=== PATIENT | female | born 1970 | race Caucasian/White ===

== ENCOUNTER 2019-05-11 14:24 | Outpatient (CLI) | payer OTHER, SELFPAY ==
--- NOTE | 2019-05-11 14:44 | ECHO_ITS ---
Patient Info Name: Kayla Leggett Age: 48 years : 1970 Gender: Female Ht: 61 in Wt: 160 lbs BSA: 1.79 m2 HR: 65 bpm BP: 128 / 84 mmHg Technical Quality: Good Exam Date: 05/11/2019 2:53 PM Exam Location: [facility] Patient Status: Outpatient Admit Date: 05/11/2019 Staff Ordering Physician: Leo Morales DO Crushing Machine Operator: Atif Rod, MAURICIO, RT Attending Provider: Leo Morales DO Referring Physician: Andrew TRAN; Exam Type: CA echo doppler color flow Study Info Indications R01.1 - Cardiac murmur, unspecified Complete two-dimensional, color flow and Doppler transthoracic echocardiogram is performed. Summary 1. Left ventricular chamber dimension is normal. 2. Left ventricular systolic function is normal, estimated at 60-65%. 3. The left ventricular diastolic function is grade III diastolic dysfunction. 4. E/e' 7 is not elevated. 5. Left atrial chamber dimension is mildly enlarged. 6. There is trace mitral valve regurgitation. 7. There is mild to moderate tricuspid valve regurgitation. 8. No pulmonary hypertension, estimated pulmonary arterial systolic pressure is 26 mmHg. 9. There is trace pulmonic regurgitation. Left Ventricle E/e' 7 is not elevated. Left ventricular chamber dimension is normal. Left ventricular systolic function is normal, estimated at 60-65%. The left ventricular diastolic function is grade III diastolic dysfunction. Right Ventricle Right ventricular chamber dimension is normal. Right ventricular systolic function is normal. Left Atria Left atrial chamber dimension is mildly enlarged. Right Atria Right atrial chamber dimension is normal. Aortic Valve The aortic valve is trileaflet. There is no aortic valve stenosis. There is no aortic valve regurgitation. Pulmonic Valve There is trace pulmonic regurgitation. Mitral Valve There is no mitral valve stenosis. There is trace mitral valve regurgitation. Tricuspid Valve There is mild to moderate tricuspid valve regurgitation. No pulmonary hypertension, estimated pulmonary arterial systolic pressure is 26 mmHg. Pericardium/Pleural There is no pericardial effusion. Inferior Vena Cava Normal inferior vena cava with >50% collapse upon inspiration consistent with normal right atrial pressure, 5 mmHg. Aorta The aortic root size at the sinus of Valsalva is normal. Left Ventricular Outflow Tract Name Value Normal LVOT 2D LVOT Diameter 1.9 cm LVOT Doppler LVOT Peak Gradient 8 mmHg LVOT Mean Gradient 5 mmHg LVOT VTI 32 cm LVOT VTI/AV VTI Ratio 0.9 LVOT Stroke Volume 89 ml LVOT CO 5.8 l/min LVOT CI 3.2 l/min/m2 Pulmonic Valve Name Value Normal PV Doppler
== END 2019-05-11 14:25 | disposition home or self-care (01) ==
PROVIDERS: PCP Emergency Medicine; Visit Provider Internal Medicine Cardiovascular Disease
DX: R01.1 Cardiac murmur, unspecified (principal); I51.7 Cardiomegaly; I07.1 Rheumatic tricuspid insufficiency
CPT/HCPCS: 93306

== ENCOUNTER 2019-05-18 10:38 | Outpatient (CLI) | payer OTHER, SELFPAY ==
--- NOTE | ~2019-05-18 | US_ITS ---
EXAMINATION: US thyroid DATE: 05/18/2019 12:48 INDICATION: Nontoxic goiter. TECHNIQUE: Multiple ultrasound images of the thyroid were obtained. COMPARISON: None. FINDINGS: The right thyroid lobe measures 4.8 x 1.6 x 1.6 cm. The left thyroid lobe measures 4.3 x 1.3 x 1.3 c m. In the right thyroid lobe, there is a 13 mm solid, hypoechoic, djviz-xbmi-cutn nodule with ill-de fined margin without echogenic foci (TI-RADS TR4). IMPRESSION: 1. Right thyroid nodule. Thyroid ultrasound is recommended in one year. Reviewed, dictated and finalized at location A. 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
== END 2019-05-18 10:39 | disposition home or self-care (01) ==
PROVIDERS: PCP Emergency Medicine; Visit Provider Internal Medicine Endocrinology, Diabetes & Metabolism
DX: E04.9 Nontoxic goiter, unspecified (principal)
CPT/HCPCS: 76536

== ENCOUNTER 2019-06-14 15:40 | Outpatient (CLI) | payer OTHER, SELFPAY ==
--- NOTE | ~2019-06-14 | MR_ITS ---
EXAMINATION: MR brain/brain stem wo/w con DATE: 06/14/2019 17:10 INDICATION: Seizure. TECHNIQUE: Magnetic resonance imaging (MRI) of the brain and brainstem was performed without and with 15 mL MultiHance intravenous contrast. Sequences included sagittal and axial T1-weighted FSE, axial diffusion-weighted FS EPI, axial T2*-weighted GRE, axial T2-weighted FLAIR Propeller, axial T2-weight ed Propeller, coronal T2-weighted FLAIR, and coronal T1-weighted 3D FSPGR. Postcontrast axial and cor onal T1-weighted FSE was obtained. Apparent diffusion coefficient (ADC) maps were created. COMPARISON: Brain MRI 06/01/2018 FINDINGS: There are scattered areas of nonspecific increased T2-weighted signal intensity in the cere bral white matter, which is within normal limits for the patient's age. There is a 12 x 11 x 9 mm mas s of increased T2-weighted signal intensity involving the left uncus. No contrast enhancement. There is no acute infarct or intracranial hemorrhage. The ventricles are normal in size. There is mucosal t hickening in the paranasal sinuses including complete opacification of right maxillary sinus and near complete opacification of the right anterior ethmoid air cells. There are mucous retention cyst in l eft maxillary sinus. IMPRESSION: 1. 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 Reviewed, dictated and finalized at location A. IMPRESSION: 1. Stable 12 mm nonenhancing mass involving the left uncus suspicious for low-g rade glioma or proteinaceous perihippocampal fissure cyst.
[2019-06-14 16:32] LABS: Estimated Glomerular Filt Rate > 60
== END 2019-06-14 15:41 | disposition home or self-care (01) ==
LOC: ANHIMG 15:43
PROVIDERS: PCP Emergency Medicine; Visit Provider Psychiatry & Neurology Neurology
DX: R56.9 Unspecified convulsions (principal); R93.0 Abnormal findings on diagnostic imaging of skull and head, not elsewhere classified
CPT/HCPCS: 36415; 70553; A9577

== ENCOUNTER 2019-10-24 08:29 | Outpatient (CLI) | payer OTHER, SELFPAY ==
--- NOTE | ~2019-10-24 | US_ITS ---
EXAMINATION: US abdomen complete DATE: 10/24/2019 09:56 INDICATION: Abnormal weight loss TECHNIQUE: Multiple grayscale and Doppler ultrasound images of the abdomen were obtained. COMPARISON: None available FINDINGS: The head and and body of the pancreas are normal. The pancreatic tail is obscured by bowel gas. The liver is normal with normal echogenicity and echotexture. No surface nodularity. Normal hepa topetal flow in the main portal vein. The gallbladder is surgically absent. The normal common bile du ct measures 6 mm. The visualized portions of the aorta and inferior vena cava are normal. The right kidney measures 10 x 4.2 x 4.7 cm. The left kidney measures 11 x 5.5 x 4.2 cm. The kidneys demonstrate normal parenchymal echogenicity. There is no hydronephrosis. The spleen is normal in appe arance and measures 11.2 cm. IMPRESSION: 1. Unremarkable postcholecystectomy ultrasound. Reviewed, dictated and finalized at location A.
== END 2019-10-24 08:30 | disposition home or self-care (01) ==
LOC: ANHIMG 08:39
PROVIDERS: PCP Emergency Medicine; Visit Provider Internal Medicine Endocrinology, Diabetes & Metabolism
DX: E04.9 Nontoxic goiter, unspecified (principal)
CPT/HCPCS: 76700

== ENCOUNTER 2019-10-24 10:54 | Outpatient (CLI) | payer OTHER, SELFPAY ==
--- NOTE | ~2019-10-24 | US_ITS ---
EXAMINATION: US thyroid DATE: 10/24/2019 09:57 INDICATION: Nontoxic goiter TECHNIQUE: Multiple ultrasound images of the thyroid were obtained. COMPARISON: 05/18/2019 FINDINGS: The right thyroid lobe measures 4.2 x 1.6 x 1.3 cm. The left thyroid lobe measures 4.2 x 1.4 x 1.0 c m. Wider than tall solid hypoechoic nodule with ill-defined margins measuring 1.2 x 0.7 x 0.9 cm at the deep mid right thyroid lobe (TI-RADS 4, moderately suspicious , FNA if >=1.5 cm, annual followup is >1 cm). There are couple additional wider than tall solid hypoechoic nodules with well-defined mar gins at the upper and lower poles of the left thyroid lobe, also TI RADS 4) measuring 6 mm and 4 mm r espectively in maximal diameters. There is normal echotexture, echogenicity and vascular flow through out the major of the thyroid gland. IMPRESSION: 1. 3 small TI RADS 4 thyroid nodules, the largest on the right measuring 1.2 cm which is not signific antly changed and for which continued annual follow-up ultrasound is recommended. Reviewed, dictated and finalized at location A. IMPRESSION: 1. 3 small TI RADS 4 thyroid nodules, the largest on the right measuring 1.2 cm which is not significantly changed and for which continued annual follow-up ul trasound is recommended.
== END 2019-10-24 10:55 ==
LOC: ANHIMG 03-13 10:55
PROVIDERS: PCP Emergency Medicine; Visit Provider Emergency Medicine
DX: E04.2 Nontoxic multinodular goiter (principal); R63.4 Abnormal weight loss; R10.9 Unspecified abdominal pain
CPT/HCPCS: 76536

== ENCOUNTER 2020-01-17 09:47 | Outpatient (CLI) | payer OTHER, SELFPAY ==
--- NOTE | ~2020-01-17 | CT_ITS ---
EXAMINATION: CT abdomen pelvis w con DATE: 01/17/2020 10:11 INDICATION: Abdominal pain TECHNIQUE: Computed tomography (CT) of the abdomen and pelvis was performed with 100 mL Omnipaque-350 intravenous contrast. Automated exposure control and iterative reconstruction technique were employe d. The dose-length product was 1241.55 mGy-cm. COMPARISON: None FINDINGS: Lung bases are clear. Mild cardiomegaly with right atrial enlargement. Postoperative change of prior median sternotomy and coronary artery bypass grafting. No pericardial or pleural effusion. Normal debbie iber common bile duct and mild central intrahepatic biliary ductal dilation which is within normal li mits post cholecystectomy with surgical clips at the gallbladder fossa. 2.3 cm splenule along the cau aleshia margin of the normal spleen. Pancreas, bilateral adrenal glands and kidneys are normal. Bowels in cluding the appendix are normal. Bladder, uterus and bilateral adnexa are unremarkable. Small amount of likely physiologic free fluid in the pelvis. No pathologically enlarged abdominal or pelvic lympha denopathy. Very small fat-containing umbilical hernia and immediately more cephalad small fat-contain ing paraumbilical hernia. Moderate thoracic and mild lumbar spondylosis. Bone island at the left femo ral neck. IMPRESSION: 1. Small amount of likely physiologic free fluid in the pelvis. No other acute intra-abdominal/pelvic process. 2. Small fat-containing umbilical and paraumbilical hernias. Reviewed, dictated and finalized at location B.
== END 2020-01-17 09:48 | disposition home or self-care (01) ==
LOC: ANHIMG 09:49
PROVIDERS: PCP Emergency Medicine; Visit Provider Emergency Medicine
DX: R10.9 Unspecified abdominal pain (principal); K42.9 Umbilical hernia without obstruction or gangrene
CPT/HCPCS: 74177; Q9967

== ENCOUNTER 2020-04-24 10:20 | Outpatient (CLI) | payer OTHER, SELFPAY ==
--- NOTE | ~2020-04-24 | MM_ITS ---
EXAMINATION: MM screening julianna BI w franklin HISTORY: Screening mammogram TECHNIQUE: Craniocaudal and mediolateral oblique 3-D tomosynthesis images were obtained and synthetic 2-D images were generated. CAD analysis was submitted and interpreted. COMPARISON: 04/07/2019 BREAST PARENCHYMAL COMPOSITION: There are scattered areas of fibroglandular density. FINDINGS: Scattered benign-appearing calcifications are present. There is no evidence of suspicious m ass, calcification, or architectural distortion to suggest malignancy in either breast. There has bee n no suspicious interval change. IMPRESSION: 1. No mammographic evidence of malignancy. 2. Recommend routine screening mammography in one year. BI-RADS Category 2: Benign finding(s). Reviewed, dictated and finalized at location A. 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
== END 2020-04-24 10:21 | disposition home or self-care (01) ==
LOC: ANHIMG 10:28
PROVIDERS: PCP Emergency Medicine; Referring Provider Internal Medicine; Visit Provider Emergency Medicine
DX: Z12.31 Encounter for screening mammogram for malignant neoplasm of breast (principal)
CPT/HCPCS: 77063; 77067

== ENCOUNTER 2020-05-14 07:33 | Outpatient (CLI) | payer OTHER, SELFPAY ==
--- NOTE | ~2020-05-14 | XR_ITS ---
EXAMINATION: XR_ENEMABAC_CR DATE: 05/14/2020 09:15 INDICATION: Dysphagia, vomiting and weight loss. Incomplete colonoscopy. TECHNIQUE: A graphics programmer radiograph was obtained. A catheter was inserted into the patient's rectum. Contra st was infused by gravity. Gas was infused by hand pump. A total of 55 fluoroscopic spot images and 1 5 conventional radiographs were obtained. Fluoroscopy exposure time was 2.4 minutes. COMPARISON: CT abdomen and pelvis dated 01/17/2020 FINDINGS: Normal mucosal pattern throughout the colon with no diverticula, mucosal irregularities, strictures o r abnormal masses. Small amount of contrast refluxes into the appendix. Cholecystectomy clips in righ t upper quadrant. Median sternotomy wires and mediastinal surgical clips are seen, likely from prior coronary artery bypass grafting. IMPRESSION: 1. Unremarkable double contrast enema with no strictures, masses or other mucosal irregularities. Reviewed, dictated and finalized at location A. TY CORONER IMPRESSION: 1. Unremarkable double contrast enema with no strictures, masses or other mucos al irregularities.
== END 2020-05-14 07:34 | disposition home or self-care (01) ==
PROVIDERS: PCP Emergency Medicine; Visit Provider Internal Medicine Gastroenterology
DX: R13.10 Dysphagia, unspecified (principal); R11.0 Nausea; R63.4 Abnormal weight loss
CPT/HCPCS: 74280

== ENCOUNTER 2020-05-31 07:52 | Outpatient (CLI) | payer OTHER, SELFPAY ==
--- NOTE | 2020-05-31 07:58 | ECHO_ITS ---
Patient Info Name: Kayla Leggett Age: 49 years : 1970 Gender: Female Ht: 61 in Wt: 230 lbs BSA: 2.18 m2 HR: 59 bpm BP: 131 / 84 mmHg Technical Quality: Good Exam Date: 05/31/2020 8:07 AM Exam Location: [facility] Patient Status: Outpatient Admit Date: 05/31/2020 Staff Ordering Physician: Leo Morales DO Commercial Accountant: Atif Rod RDCS, RT Attending Provider: Leo Morales DO Referring Physician: Andrew TRAN; Exam Type: CA echo doppler color flow Study Info Indications R06.09 - Other forms of dyspnea Complete two-dimensional, color flow and Doppler transthoracic echocardiogram is performed. Strain analysis performed. Summary 1. Complete two-dimensional, color flow and Doppler transthoracic echocardiogram is performed. 2. Left ventricular chamber dimension is mildly enlarged. 3. Left ventricular systolic function is normal, estimated at 60-65%. 4. The left ventricular diastolic function is normal. 5. E/e' 6 is not elevated. 6. Global longitudinal strain is normal at -20.7%. 7. Left atrial chamber dimension is mildly enlarged. 8. Right atrial chamber dimension is mildly enlarged. 9. There is trace mitral valve regurgitation. 10. There is mild to moderate tricuspid valve regurgitation. 11. No pulmonary hypertension, estimated pulmonary arterial systolic pressure is 35 mmHg. 12. There is trace pulmonic regurgitation. 13. Normal inferior vena cava with >50% collapse upon inspiration consistent with significantly elevated right atrial pressure, 15 mmHg. Left Ventricle E/e' 6 is not elevated. Global longitudinal strain is normal at -20.7%. Left ventricular chamber dimension is mildly enlarged. Left ventricular systolic function is normal, estimated at 60-65%. The left ventricular diastolic function is normal. Right Ventricle Right ventricular chamber dimension is normal. Right ventricular systolic function is normal. Left Atria Left atrial chamber dimension is mildly enlarged. Right Atria Right atrial chamber dimension is mildly enlarged. Aortic Valve The aortic valve is trileaflet. There is no aortic valve stenosis. There is no aortic valve regurgitation. Pulmonic Valve There is trace pulmonic regurgitation. Mitral Valve There is no mitral valve stenosis. There is trace mitral valve regurgitation. Tricuspid Valve There is mild to moderate tricuspid valve regurgitation. No pulmonary hypertension, estimated pulmonary arterial systolic pressure is 35 mmHg. Pericardium/Pleural There is no pericardial effusion. Inferior Vena Cava Normal inferior vena cava with >50% collapse upon inspiration consistent with significantly elevated right atrial pressure, 15 mmHg. Aorta The aortic root size at the sinus of Valsalva is normal. Left Ventricular Outflow Tract Name Value Normal LVOT 2D LVOT Diameter 1.9 cm Mitral Valve Name Value Normal MV Doppler MV Decel [place] 247 cm/s2
== END 2020-05-31 07:53 | disposition home or self-care (01) ==
PROVIDERS: PCP Emergency Medicine; Visit Provider Internal Medicine Cardiovascular Disease
DX: R06.09 Other forms of dyspnea (principal); I34.0 Nonrheumatic mitral (valve) insufficiency
CPT/HCPCS: 93306

== ENCOUNTER 2020-10-16 10:47 | Outpatient (CLI) | payer OTHER, SELFPAY ==
--- NOTE | ~2020-10-16 | US_ITS ---
EXAMINATION: US thyroid EXAM DATE: 10/16/2020 11:20 INDICATION: Single nontoxic thyroid nodule follow-up. TECHNIQUE: Multiple grayscale and Doppler images of the thyroid were obtained (by a technologist who performed the scan) and subsequently reviewed. Individual nodules and recommendations may be reporte d in accordance with TI-RADS system as designated by the 2017 ACR White Paper TI-RADS committee. The re is no prior study for comparison. FINDINGS: The right thyroid lobe measures 4.0 x 1.5 x 1.5 cm, the left measuring 4.1 x 1.3 x 1.1 cm. Mildly het erogeneous thyroid echogenicity and some increase in vascularity. Exit field In the deep mid aspect of the right thyroid lobe there is a nodule measuring 1.1 x 0.8 x 0.7 cm, nirali d (2 points), hypoechoic (2 points), wider than tall, smooth well defined margin, without echogenic f oci, category TR4 for this nodule. Measurements for this nodule obtained in April 2019 were 1.3 x 0.8 x 0.7, stable. There are a couple of left thyroid lobe nodules up to 4 mm stable. IMPRESSION: Stable right thyroid lobe nodule; one-year follow-up ultrasound recommended. Reviewed, dictated and finalized at location B. IMPRESSION: Stable right thyroid lobe nodule; one-year follow-up ultrasound rec ommended.
== END 2020-10-16 10:48 | disposition home or self-care (01) ==
LOC: ANHIMG 10:50
PROVIDERS: PCP Emergency Medicine; Visit Provider Internal Medicine Endocrinology, Diabetes & Metabolism
DX: E04.1 Nontoxic single thyroid nodule (principal); C71.9 Malignant neoplasm of brain, unspecified
CPT/HCPCS: 76536

== ENCOUNTER 2020-10-22 06:42 | Outpatient (CLI) | payer OTHER, SELFPAY ==
--- NOTE | ~2020-10-22 | MR_ITS ---
EXAMINATION: MR brain/brain stem wo/w con DATE: 10/22/2020 07:33 INDICATION: Malignant neoplasm of brain. TECHNIQUE: Magnetic resonance imaging (MRI) of the brain and brainstem was performed without and with 20 mL MultiHance intravenous contrast. Sequences included sagittal and axial T1-weighted FSE, axial diffusion-weighted FS EPI, axial T2*-weighted GRE, axial T2-weighted FLAIR Propeller, and axial T2-we ighted Propeller. Postcontrast sequences included axial, sagittal, and coronal T1-weighted FSE. Appar ent diffusion coefficient (ADC) maps were created. COMPARISON: Brain MRI 06/14/2019, 06/01/2018 FINDINGS: There are scattered areas of nonspecific increased T2-weighted signal intensity in the cere bral white matter, which is within normal limits for the patient's age. There is a 12 x 11 x 9 mm mas s of increased T2-weighted signal intensity involving the left uncus. No contrast enhancement. There is no acute ischemic infarct or intracranial hemorrhage. The ventricles are normal in size. The orbit s are normal. There is mucosal thickening in the paranasal sinuses including complete opacification o f right maxillary sinus. The mastoid air cells are normal. IMPRESSION: 1. 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 Reviewed, dictated and finalized at location A. IMPRESSION: 1. 12 mm nonenhancing mass involving the left uncus, stable from 06/01/2018, cyrus picious for low-grade glioma or proteinaceous perihippocampal fissure cyst.
[2020-10-22 07:20] LABS: Estimated Glomerular Filt Rate > 60
== END 2020-10-22 06:43 | disposition home or self-care (01) ==
LOC: ANHIMG 06:44
PROVIDERS: PCP Emergency Medicine; Visit Provider Emergency Medicine
DX: C71.9 Malignant neoplasm of brain, unspecified (principal); R41.3 Other amnesia; R51.9 Headache, unspecified
CPT/HCPCS: 70553; A9577

== ENCOUNTER 2020-11-09 12:37 | Inpatient (IN) | payer OTHER, SELFPAY ==
[2020-11-09] VITALS (20 sets, daily range): BP systolic 92–146; BP diastolic 48–100; PULSE 63–80; RESP 11–30; TEMP 36.4–36.8; O2SAT 94–100
--- NOTE | ~2020-11-09 | US_ITS ---
. EXAMINATION: US pelvic complete w TV DATE: 11/09/2020 16:13 INDICATION: Right adnexal mass. Right pelvic pain. TECHNIQUE: Multiple transabdominal and transvaginal sonographic images of the pelvis were obtained. COMPARISON: CT abdomen and pelvis 11/09/2020 FINDINGS: TRANSABDOMINAL ULTRASOUND: The uterus measures 13.5 x 6.0 x 5.9 cm. There is trace free fluid in the pelvis. There is a 7.2 x 4. 5 x 3.3 cm mass in the right adnexa with vascular flow. TRANSVAGINAL ULTRASOUND: The endometrial complex measures 13 mm in thickness. There is a 4.9 x 1.9 x 2.6 cm mass in the cervic al canal. The left ovary measures 2.3 x 2.2 x 2.0 cm. There is vascular flow in the left ovary. IMPRESSION: 1. 4.9 x 1.9 x 2.6 cm mass in the cervical canal suspicious for cervical cancer. 2. 7.2 x 4.5 x 3.3 cm right adnexal mass. The differential diagnosis includes neoplasm, hemorrhagic c yst, and phlegmon. Reviewed, dictated and finalized at location A. IMPRESSION: 1. 4.9 x 1.9 x 2.6 cm mass in the cervical canal suspicious for cervical cancer . 2. 7.2 x 4.5 x 3.3 cm right adnexal mass. The differential diagnosis includes n eoplasm, hemorrhagic cyst, and phlegmon.
--- NOTE | ~2020-11-09 | CT_ITS ---
EXAMINATION: CT abdomen pelvis w con DATE: 11/09/2020 14:20 INDICATION: Right lower quadrant abdominal pain TECHNIQUE: Computed tomography (CT) of the abdomen and pelvis was performed with 100 cc Omnipaque 350 intravenous contrast. Automated exposure control and iterative reconstruction technique were employe d. Exam dose: 1343.72 mGy-cm total exam DLP. COMPARISON: 01/17/2020 CT abdomen pelvis FINDINGS: The lung bases are clear of infiltrate or consolidation. No pericardial effusion. Small rig ht pleural effusion. Slight left pleural effusion. Status post sternotomy. Status post cholecystectomy. The liver, spleen, pancreas, and adrenal glands and kidneys are unremark able. No bile duct or pancreatic duct dilatation. No urinary tract calculus or hydroureteronephrosis. Normal caliber of the abdominal aorta. No aortocaval or periaortic lymphadenopathy is noted. The uterus is enlarged, measuring up to 12 cm vertical dimension, 6 cm maximal anteroposterior dimens ion. There is prominent fluid and/or soft tissue accumulation within the endometrial cavity of the tobias dy and fundus of the uterus. Gynecologic consultation is recommended to evaluate for cervical or endo metrial malignancy. There is an irregular mass in the right adnexal area measuring up to approximately 4 x 5.2 cm, extend ing to the anterolateral right lower abdominal wall. Ovarian malignancy is not excluded. This would b e amenable to CT-guided percutaneous needle biopsy. There is mild free fluid in the anterior and posterior cul-de-sacs and right adnexal area. The colon is redundant. No bowel obstruction is evident. The appendix appears normal. Small fat-conta ining umbilical hernia. There is an adjacent 2 x 2.8 cm supraumbilical fat-containing ventral abdomi nal wall hernia. No suspicious osteolytic or osteoblastic lesions are noted. IMPRESSION: Uterine enlargement and prominent fluid and/or soft tissue density within the endometria l cavity. Cervical or endometrial malignancy is not excluded. Gynecologic consult is recommended. Irregular right adnexal soft tissue mass, right lower quadrant, extending to the anterolateral right lower abdominal wall. Right ovarian malignancy is not excluded. This would be amenable to CT abdomen guided percutaneous needle biopsy. Reviewed, dictated and finalized at [facility]. Reviewed, dictated and finalized at [facility]. IMPRESSION: Uterine enlargement and prominent fluid and/or soft tissue density within the endometrial cavity. Cervical or endometrial malignancy is not exclu ded. Gynecologic consult is recommended. Irregular right adnexal soft tissue mass, right lower quadrant, extending to th e anterolateral right lower abdominal wall. Right ovarian malignancy is not exc luded. This would be amenable to CT abdomen guided percutaneous needle biopsy.
--- NOTE | 2020-11-09 13:26 | ED.ABDPAIN ---
HPI - Abdominal Pain General Chief Complaint: Abdominal Pain Stated Complaint: ABD PAIN Time Seen by Provider: 11/09/20 13:04 History of Present Illness HPI narrative: 50 yo female presents to the ED c/o abdominal pain. RLQ abdominal pain started acutely last night. Feels like her insides are being ripped out. Associated with nausea. She has not tired anything for her pain. She has never had this type of pain before. History somewhat limited by clinical condition. Related Data Home Medications Medication Instructions Recorded Confirmed alprazolam 1 mg tablet 1 mg PO BID 05/03/19 11/07/20 hydrocodone 7.5 mg-acetaminophen 1 tablet PO Q8H PRN 05/03/19 11/07/20 325 mg tablet tramadol 50 mg tablet 50 mg PO Q6H PRN 05/03/19 11/07/20 levetiracetam 500 mg tablet 500 mg PO Q12H 09/04/20 11/07/20 dicyclomine 10 mg PO BID 11/09/20 Allergies Allergy/AdvReac Type Severity Reaction Status Date / Time Penicillins Allergy Unknown Unknown Verified 11/07/20 11:16 Review of Systems Review of Systems: All systems reviewed & are unremarkable except as noted in HPI and below Constitutional: Constitutional: Denies fever(s) Cardiovascular: Cardiovascular: Denies chest pain Respiratory: Respiratory: Denies dyspnea Genitourinary: Genitourinary: Denies hematuria and Denies dysuria Musculoskeletal: Musculoskeletal: Denies back pain PMFSH Past Medical History Medical History Chronic fatigue, unspecified LARIOS (dyspnea on exertion) Hypersomnia Left ventricular outflow tract obstruction Surgical History Surgical History History of open heart surgery Family History Family History Mother Hypertension Family history of cardiac disorder Social History Social History Smoking status: Never smoker Alcohol intake: never Exam Const: General: healthy appearing and alert Nutritional Appearance: obese Orientation/consciousness: patient oriented x3 Other: moderate distress HENMT: Head: normal to inspection Neck: Neck: normal visual inspection and no lymphadenopathy Chest: Chest palpation & inspection: no tenderness Resp: Effort & Inspection: normal respiratory effort Auscultation: clear to auscultation bilaterally, no rales, no rhonchi and no wheezes Cardio: Jugular venous distension: no JVD Rate: regular rate Rhythm: regular rhythm Heart sounds: no murmurs GI: Inspection: non-distended GI Palp: Yes Soft to palpation and Yes Tenderness to palpation present (GI) : External Female Exam: normal external appearance Speculum Exam - Vagina: normal appearance of the vagina Speculum Exam - Cervix: normal appearance of the cervix and Cervical os closed Bimanual exam- vagina & uterus: no cervical motion tenderness Skin: General skin exam: normal color Neuro: General: patient oriented x3 and moves all extremities Speech: normal speech Extrem: General: no edema Psych: Appearance: well kempt Affect: normal affect Course Vital Signs Vital signs: Vital Signs Temperature 36.8 C 11/09/20 12:38 Pulse Rate 80 11/09/20 12:38 Respiratory Rate 14 11/09/20 12:38 Blood Pressure 134/82 11/09/20 12:38 Pulse Oximetry 99 11/09/20 12:38 Temperature 36.8 C 11/09/20 12:38 Pulse Rate 63 11/09/20 17:32 Respiratory Rate 15 11/09/20 17:32 Blood Pressure 118/67 11/09/20 17:32 Pulse Oximetry 100 11/09/20 17:32 MDM - Abdominal Pain MDM Narrative Medical decision making narrative: CT concerning for uterine and ovarian masses. Dr. Emily ponce will admit and see the patient this evening. Differential Diagnosis Differential diagnosis: Likely acute appendicitis, calculus of kidney, pancreatitis and other (ovarian cyst, PID) Medical Records Attestation: I reviewed the pat
[2020-11-09 13:33] LABS: Basophils Percent Auto 0.3 % (0.2-1.2); Eosinophils Absolute Auto 0.1 K/mm3 (0-0.3); Eosinophils Percent Auto 0.5 % (0-4.4); Hematocrit 40.6 % (37.0-47.0); Hemoglobin 12.9 g/dL (12.0-15.0); Immature Granulocyte Absolute 0.07 K/mm3 (0.00-0.031); Immature Granulocyte Percent A 0.5 % (0-0.5); Lymphocytes Absolute Auto 1.19 K/mm3 (0.9-3.2); Mean Corpuscular HGB Conc 31.8 g/dl (32-36); Mean Corpuscular Hemoglobin 27.9 pg (26-34); Mean Corpuscular Volume 87.7 fl (80-100); Monocytes Absolute Auto 0.6 K/mm3 (0.1-0.6); Monocytes Percent Auto 3.7 % (2.6-8.5); Platelet Count Result 284 k/mm3 (150-375); Red Blood Count 4.63 M/mm3 (4.2-5.4); Red Cell Distribution Width 14.7 % (11.5-14.5); White Blood Count 14.9 K/mm3 (4.5-10.0)
[2020-11-09] MEDS: fentaNYL CITRATE INJ (*CRX) 100 MCG/2 ML VIAL 50 MCG IV PUSH ×2 (13:35→14:28)
[2020-11-09] MEDS: SODIUM CHLORIDE 0.9% IV 1,000 ML 999 ML IV CONT (13:35)
[2020-11-09] MEDS: ONDANSETRON INJ 4 MG/2 ML VIAL IV PUSH (13:36)
[2020-11-09 13:43] LABS: Alanine Aminotransferase 18 U/L (4-35); Alkaline Phosphatase 90 U/L (38-126); Anion Gap 7 mmol/L (8-16); Aspartate Amino Transferase 30 U/L (14-36); Bilirubin,Total 0.8 mg/dL (0.2-1.3); Blood Urea Nitrogen 12 mg/dL (7-17); Calcium 8.7 mg/dL (8.4-10.2); Carbon Dioxide 26 mmol/L (22-30); Chloride 105 mmol/L (98-107); Estimated CRCL calculation 109 ml/min; Estimated Glomerular Filt Rate > 60; Glucose 91 mg/dL (65-110); Lipase 26 U/L (23-300); Sodium 138 mmol/L (137-145)
[2020-11-09 14:03] LABS: Add Urine Microscopic? YES; Appearance Urine Cloudy (Clear); Bilirubin Urine Negative (Negative); Blood Urine 3+ (Negative); Color Urine Amber (Yellow); Glucose Urine UA Negative (Negative); Ketones Urine Negative (Negative); Leukocyte Esterase Ur 2+ LEU/UL (Negative); Nitrate Urine Negative (Negative); Protein Urine 2+ mg/dL (Negative); RBC Urine >75 /hpf (0-2); Specific Grav Ur 1.023 (1.001-1.035); Squamous Epithelial Cell Urine Rare /hpf (Few); WBC Urine >75 /hpf
[2020-11-09] MEDS: HYDROmorphone HCL INJ (*CRX) 1 MG/ML SYR IV PUSH ×4 (16:50→21:26)
--- NOTE | 2020-11-09 18:00 | PC.NURSE ---
Dr. Ny in to see pt, pelvic exam completed, specimens collected and sent to lab. Continues to c/o right lower abdominal pain. Taking few ice chips, denies nausea.
--- NOTE | 2020-11-09 21:00 | ADMGEN ---
This patient, Kayla Leggett, was admitted to Medical Room 261-01. Patient/family oriented to hospital policies and general routines including ID bracelet, bed and alarms, visiting hours, pain management, procedures, bathroom and other care routines, personal items, smoking policy, room service/diet, and visiting hours. Information on how to activate the Rapid Response Team has been discussed. Patient/Family are encouraged to report perceived risks to care and to ask questions if they do not understand what they are told or what they should do.
[2020-11-10] MEDS: HYDROmorphone HCL INJ (*CRX) 1 MG/ML SYR IV PUSH ×3 (00:01→05:04)
[2020-11-10 06:00] VITALS: BP 118/55; PULSE 63; RESP 20; TEMP 36.1; O2SAT 96
[2020-11-10] MEDS: KETOROLAC 30 MG/ML VIAL (*BKC) IV PUSH ×3 (06:25→18:59)
--- NOTE | 2020-11-10 08:48 | PM.IMHP ---
H&P: HPI History of Present Illness Date/Time: 11/10/20 08:48 This is a 6 year 3 para 3 status post tubal ligation 26 years ago admitted through the emergency department complaining severe lower pain. 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 She denies having bleeding but imaging showed both the uterine mass and right adnexal mass suspicious for cancer risk changed. Chief Complaint: pain and lower abdomen Review of Systems Review of Systems: All systems reviewed & are unremarkable except as noted in HPI and below PMFSH Past Medical History Medical History Chronic fatigue, unspecified LARIOS (dyspnea on exertion) Hypersomnia Left ventricular outflow tract obstruction Surgical History Surgical History History of open heart surgery Family History Family History Mother Hypertension Family history of cardiac disorder Social History Social History Smoking status: Former smoker Alcohol intake: never Substance use: never Substance use type: does not use Spiritual care concerns: No Meds Home Medications and Allergies Home Medications Medication Instructions Recorded Confirmed Type alprazolam 1 mg tablet 1 mg PO BID 05/03/19 11/09/20 History hydrocodone 7.5 mg-acetaminophen 1 tablet PO Q8H PRN 05/03/19 11/09/20 History 325 mg tablet tramadol 50 mg tablet 50 mg PO Q6H PRN 05/03/19 11/09/20 History levetiracetam 500 mg tablet 500 mg PO Q12H 09/04/20 11/09/20 History dicyclomine 10 mg PO BID 11/09/20 11/09/20 History Allergies Allergy/AdvReac Type Severity Reaction Status Date / Time Penicillins Allergy Unknown Swelling Verified 11/09/20 21:13 of Lip/Tongue/Throat Vital Signs Vital Signs - 24 hr 11/09/20 12:38 11/09/20 12:58 11/09/20 13:02 Temperature 98.2 F Pulse Rate 80 74 75 Respiratory Rate 14 21 H 20 Blood Pressure 134/82 142/68 H 140/77 Pulse Oximetry 99 97 97 11/09/20 13:17 11/09/20 13:51 11/09/20 14:02 Temperature Pulse Rate 78 75 70 Respiratory Rate 30 H 27 H 20 Blood Pressure 146/80 H 109/63 120/93 H Pulse Oximetry 100 99 100 11/09/20 14:36 11/09/20 15:02 11/09/20 16:00 Temperature Pulse Rate 71 69 70 Respiratory Rate 21 H 11 L 18 Blood Pressure 145/100 H 138/80 132/82 Pulse Oximetry 99 100 94 11/09/20 16:33 11/09/20 17:02 11/09/20 17:32 Temperature Pulse Rate 65 66 63 Respiratory Rate 21 H 20 15 Blood Pressure 133/71 135/87 118/67 Pulse Oximetry 100 100 100 11/09/20 18:02 11/09/20 18:32 11/09/20 19:02 Temperature Pulse Rate 75 65 67 Respiratory Rate 21 H 14 16 Blood Pressure 124/79 115/57 L 107/67 Pulse Oximetry 99 97 98 11/09/20 19:31 11/09/20 20:01 11/09/20 20:31 Temperature Pulse Rate 69 74 74 Respiratory Rate 14 13 27 H Blood Pressure 92/71 L 102/55 L 97/56 L Pulse Oximetry 99 99 94 11/09/20 20:59 11/09/20 21:48 11/10/20 06:00 Temperature 98.3 F 97.6 F 96.9 F L Pulse Rate 74 76 63 Respiratory Rate 26 H 20 20 Blood Pressure 97/56 L 100/48 L 118/55 L Pulse Oximetry 94 98 96 Exam Const: General: no acute distress Eyes: General: appearance normal, both eyes and all related structures Neck: Neck: supple and no JVD Thyroid: thyroid normal Resp: Effort & Inspection: normal respiratory effort Auscultation: clear to auscultation bilaterally Cardio: Rate: regular rate Rhythm: regular rhythm GI: Inspection: non-distended GI Palp: Yes Soft to palpation, No Tenderness to palpation present (GI) and No Guarding due to palpation present (GI) Auscultation: normal bowel sounds Skin: General skin exam: no rashes or lesions noted Extrem: General: normal to inspection and no edema Psych: Mental Status: menta
--- NOTE | 2020-11-10 08:56 | PM.GYNPNOP ---
[facility] - A/P Time Spent With Patient Time: Total time spent is greater than 50% in coordination of care (as documented) at patient's floor/unit and/or counseling patient: Time with patient: 15 - 25 minutes [facility]- PN:Isabel Post-Op Subjective Date/time seen: 11/10/20 08:56 reviewed imaging findings with patient this morning. CA 125 is pending and pain continues. Operative hysteroscopy and dilatation curettage tomorrow. Also undertake under anesthesia. Risks and benefits reviewed [facility] - PN: Obj Data Vital Signs Vital Signs: Vital Signs - 24 hr 11/09/20 12:38 11/09/20 12:58 11/09/20 13:02 Temperature 98.2 F Pulse Rate 80 74 75 Respiratory Rate 14 21 H 20 Blood Pressure 134/82 142/68 H 140/77 Pulse Oximetry 99 97 97 11/09/20 13:17 11/09/20 13:51 11/09/20 14:02 Temperature Pulse Rate 78 75 70 Respiratory Rate 30 H 27 H 20 Blood Pressure 146/80 H 109/63 120/93 H Pulse Oximetry 100 99 100 11/09/20 14:36 11/09/20 15:02 11/09/20 16:00 Temperature Pulse Rate 71 69 70 Respiratory Rate 21 H 11 L 18 Blood Pressure 145/100 H 138/80 132/82 Pulse Oximetry 99 100 94 11/09/20 16:33 11/09/20 17:02 11/09/20 17:32 Temperature Pulse Rate 65 66 63 Respiratory Rate 21 H 20 15 Blood Pressure 133/71 135/87 118/67 Pulse Oximetry 100 100 100 11/09/20 18:02 11/09/20 18:32 11/09/20 19:02 Temperature Pulse Rate 75 65 67 Respiratory Rate 21 H 14 16 Blood Pressure 124/79 115/57 L 107/67 Pulse Oximetry 99 97 98 11/09/20 19:31 11/09/20 20:01 11/09/20 20:31 Temperature Pulse Rate 69 74 74 Respiratory Rate 14 13 27 H Blood Pressure 92/71 L 102/55 L 97/56 L Pulse Oximetry 99 99 94 11/09/20 20:59 11/09/20 21:48 11/10/20 06:00 Temperature 98.3 F 97.6 F 96.9 F L Pulse Rate 74 76 63 Respiratory Rate 26 H 20 20 Blood Pressure 97/56 L 100/48 L 118/55 L Pulse Oximetry 94 98 96 Intake/Output Intake/Output: Intake & Output 11/07/20 11/08/20 11/09/20 11/10/20 23:59 23:59 23:59 23:59 Intake Total 1050 500 Balance 1050 500 Meds/Results Medications: Active Medications Generic Name Dose Route Start Last Admin Trade Name Freq PRN Reason Stop Dose Admin Ceftriaxone Sodium/Dextrose 1 gm in 50 mls @ 100 mls/hr 11/10/20 18:00 Rocephin 1 Gm/D5w 50 Ml IVPB Q24H JAY Ketorolac Tromethamine 30 mg 11/10/20 05:56 11/10/20 06:25 Ketorolac 30 Mg/Ml Vial (*Bkc) IV PUSH 30 mg Q6H PRN Administration Pain Rated 4-6 Oxycodone/Acetaminophen 2 tablet 11/10/20 05:58 Oxycodone/Acetaminophen (*Crx) 5-325 Mg Tablet PO Q4H PRN Pain Rated 7-10 Radiology Results: ITS Impressions Abdomen/Pelvis CT 11/09/20 14:28 IMPRESSION: Uterine enlargement and prominent fluid and/or soft tissue density within the endometrial cavity. Cervical or endometrial malignancy is not excluded. Gynecologic consult is recommended. Irregular right adnexal soft tissue mass, right lower quadrant, extending to the anterolateral right lower abdominal wall. Right ovarian malignancy is not excluded. This would be amenable to CT abdomen guided percutaneous needle biopsy. Pelvic/Transvag US 11/09/20 16:15 IMPRESSION: 1. 4.9 x 1.9 x 2.6 cm mass in the cervical canal suspicious for cervical cancer. 2. 7.2 x 4.5 x 3.3 cm right adnexal mass. The differential diagnosis includes neoplasm, hemorrhagic cyst, and phlegmon. Labs CBC & Chem 7: 11/09/20 13:28 11/09/20 13:28 Labs: Laboratory Results - last 24 hr 11/09/20 11/09/20 11/09/20 13:28 13:28 13:51 WBC 14.9 H RBC 4.63 Hgb 12.9 Hct 40.6 MCV 87.7 MCH 27.9 MCHC 31.8 L RDW 14.7 H Plt Count 284 MPV 11.0 H Immature Gran % (Auto) 0.5 Neut % (Auto) 87.0 H Lymph % (Auto) 8.0 L [place] % (Auto) 3.7 Eos % (Auto) 0.5 Baso % (Auto) 0.3 Lymph # (Auto) 1.19 [place] # (Auto) 0.6 Eos # (Auto) 0.1 Baso # (Auto) 0.0 Abs Immat Gran (auto) 0.07 H Absolute
[2020-11-10] MEDS: oxyCODONE/ACETAMINOPHEN (*CRX) 5-325 MG TABLET 2 TABLET PO ×2 (09:27→16:03)
--- NOTE | 2020-11-10 12:46 | WPDANESEPP ---
Anes - Eval Pre Procedure Procedure: Vaginal EUA, Hysteroscopy D&C Date/Time: 11/10/20 12:46 Surgeon: Emily Walker Preop Diagnosis: Pelvic Mass Pre Op Diagnosis: Pelvic mass/intractable pain/UTI Patient Data Age: 50 Gender: F Height: 1.52 m Weight: 109.32 kg Last Vital Signs Temp 36.1 C L 11/10/20 06:00 Pulse 63 11/10/20 06:00 Resp 20 11/10/20 06:00 BP 118/55 L 11/10/20 06:00 Pulse Ox 96 11/10/20 06:00 Allergies Allergy/AdvReac Type Severity Reaction Status Date / Time Penicillins Allergy Unknown Swelling Verified 11/09/20 21:13 of Lip/Tongue/Throat Home Medications Medication Instructions Recorded Confirmed Type alprazolam 1 mg tablet 1 mg PO BID 05/03/19 11/09/20 History hydrocodone 7.5 mg-acetaminophen 1 tablet PO Q8H PRN 05/03/19 11/09/20 History 325 mg tablet tramadol 50 mg tablet 50 mg PO Q6H PRN 05/03/19 11/09/20 History levetiracetam 500 mg tablet 500 mg PO Q12H 09/04/20 11/09/20 History dicyclomine 10 mg PO BID 11/09/20 11/09/20 History Laboratory Tests 11/09/20 11/09/20 11/09/20 13:28 13:28 13:51 WBC 14.9 K/mm3 H K/mm3 (4.5-10.0) RBC 4.63 M/mm3 M/mm3 (4.2-5.4) Hgb 12.9 g/dL g/dL (12.0-15.0) Hct 40.6 % % (37.0-47.0) MCV 87.7 fl fl (80-100) MCH 27.9 pg pg (26-34) MCHC 31.8 g/dl L g/dl (32-36) RDW 14.7 % H % (11.5-14.5) Plt Count 284 k/mm3 k/mm3 (150-375) MPV 11.0 fl H fl (7.4-10.4) Immature Gran % (Auto) 0.5 % % (0-0.5) Neut % (Auto) 87.0 % H % (45.5-73.1) Lymph % (Auto) 8.0 % L % (18.3-44.2) [place] % (Auto) 3.7 % % (2.6-8.5) Eos % (Auto) 0.5 % % (0-4.4) Baso % (Auto) 0.3 % % (0.2-1.2) Lymph # (Auto) 1.19 K/mm3 K/mm3 (0.9-3.2) [place] # (Auto) 0.6 K/mm3 K/mm3 (0.1-0.6) Eos # (Auto) 0.1 K/mm3 K/mm3 (0-0.3) Baso # (Auto) 0.0 K/mm3 K/mm3 (0.0-0.1) Abs Immat Gran (auto) 0.07 K/mm3 H K/mm3 (0.00-0.031) Absolute Neuts (auto) 13.0 K/mm3 H K/mm3 (1.3-6.7) Absolute Nucleated RBC 0.0 K/mm3 K/mm3 (0.0-0.012) Nucleated RBC % 0.0 % % (0.0-0.2) Sodium 138 mmol/L mmol/L (137-145) Potassium 4.0 mmol/L mmol/L (3.4-5.0) Chloride 105 mmol/L mmol/L (98-107) Carbon Dioxide 26 mmol/L mmol/L (22-30) Anion Gap 7 mmol/L L mmol/L (8-16) BUN 12 mg/dL mg/dL (7-17) Creatinine 0.60 mg/dL L mg/dL (0.7-1.0) Estim Creat Clear Calc 109 ml/min ml/min Estimated GFR > 60 (59 - ) Glucose 91 mg/dL mg/dL (65-110) Calcium 8.7 mg/dL mg/dL (8.4-10.2) Total Bilirubin 0.8 mg/dL mg/dL (0.2-1.3) AST 30 U/L U/L (14-36) ALT 18 U/L U/L (4-35) Alkaline Phosphatase 90 U/L U/L (38-126) Total Protein 7.0 g/dL g/dL (6.3-8.2) Albumin 4.0 g/dL g/dL (3.5-5.1) Lipase 26 U/L U/L (23-300) CA 125 Antigen Urine Color [place] (Yellow) Urine Appearance Cloudy H (Clear) Urine pH 6.0 (5.0-9.0) Ur Specific [place] 1.023 (1.001-1.035) Urine Protein 2+ mg/dL H mg/dL (Negative) Urine Glucose (UA) Negative mg/dL mg/dL (Negative) Urine Ketones Negative mg/dL mg/dL (Negative) Ur Blood (Man) 3+ H (Negative) Urine Nitrate Negative (Negative) Urine Bilirubin Negative (Negative) Urine Urobilinogen 4.0 mg/dL H mg/dL (<2.0) Leukocyte Esterase Rfl 2+ ALFREOD/UL H ALFREDO/UL (Negative) Urine RBC >75 /hpf H /hpf (0-2) Urine WBC >75 /hpf H /hpf Ur Squamous Epith Cells Rare /hpf /hpf (Few) C.trachomatis RNA (TMA) N.gonorrhoeae RNA (TMA) Trichomonas Direct
--- NOTE | 2020-11-10 12:48 | ECG_ITS ---
Measurements Intervals [place] Rate: 63 P: 55 WV: 147 QRS: -13 QRSD: 104 T: 58 QT: 351 QTc: 361 Interpretive Statements SINUS RHYTHM POSSIBLE LEFT ATRIAL ENLARGEMENT POSSIBLE LEFT VENTRICULAR HYPERTROPHY BORDERLINE R WAVE PROGRESSION, ANTERIOR LEADS BORDERLINE T WAVE ABNORMALITY- ANTEROLATERAL LEADS BORDERLINE ECG Electronically Signed On 11-10-2020 20:06:33 CDT by Leo Morales D.O.
[2020-11-10 14:00] VITALS: BP 115/81; PULSE 65; RESP 18; TEMP 36.1; O2SAT 98
[2020-11-10] MEDS: DICYCLOMINE HCL 10 MG CAPSULE PO (21:18)
[2020-11-10] MEDS: ALPRAZolam (*CRX) 0.5 MG TABLET 1 MG PO (21:18)
[2020-11-10] MEDS: levETIRAcetam 500 MG TABLET PO (21:18)
[2020-11-10 21:57] VITALS: BP 114/56; PULSE 60; RESP 18; TEMP 36.1; O2SAT 98
[2020-11-11] VITALS (12 sets, daily range): BP systolic 99–135; BP diastolic 46–76; PULSE 59–79; RESP 16–21; TEMP 36.5–36.9; O2SAT 96–100
--- NOTE | 2020-11-11 07:39 | WPDHPUPDATE1 ---
History and Physical Update Update Date/Time: 11/11/20 07:39 History and Physical has been reviewed, including an updated exam of the patient. There are NO changes in the patient's condition. Risks, benefits, and alternatives have been discussed and questions answered. Patient agrees to proceed with procedure.
--- NOTE | 2020-11-11 07:41 | PC.NURSE ---
To OR per bed, IV saline locked.
[2020-11-11] MEDS: LACTATED RINGERS 1,000 ML 30 ML IV CONT (08:00)
--- NOTE | 2020-11-11 08:59 | WPDANESEFPP ---
Anes - Eval Final PreProcedure Day of Procedure 11/11/20 08:59 Patient weight: morbidly obese Heart: regular rate and rhythm Lungs: clear to auscultation and normal air movement Airway: Mallampati scale class II Neurological: alert and oriented Last oral intake: >/= 8 hours ASA classification: III Emergent: no Anesthetic plan: proceed Anesthesia type and monitoring: general GIVS and standard monitoring Informed Consent: The patient's anesthetic plan and its attendant risks and benefits were discussed with the patient/family/POA. Questions were solicited and answers provided to the satisfaction of the patient/family/POA.
--- NOTE | 2020-11-11 09:52 | W.PM.PROC2 ---
Procedure Note - Detailed Date of Procedure 11/11/20 Pre-op Diagnosis Pelvic mass/intractable pain/UTI Post-op Diagnosis same Procedure Performed Hysteroscopy/dilatation and curettage Surgeon Brent Son MD Anesthesia MAC and local Indications This is a 50-year-old female admitted through the ER with pelvic mass and questionable intrauterine mass Findings Marked and enlarged uterus was noted. On pelvic exam there was marked pelvic fullness on the right. No definitive mass seen on hysteroscopy Description of Procedure The patient was prepped draped in the normal sterile fashion and placed in the dorsal lithotomy position. Under excellent IV sedation weighted speculum placed in posterior fornix vagina. Anterior lip of the cervix was grasped with a single-tooth tenaculum. 2.5cc of 1% xylocaine anesthesia placed at 2, 4, 8, 10:00 a.m. of the cervix. Uterus sounded to 10cm. Serial dilatation with fragmented dilators form passage by the 5mm visualizing hysteroscope using normal saline as visualizing medium. Irregular endometrium was seen but no evidence of a definite mass. The uterus was scraped over the entire 360? until good grating sound was heard. All sponge, needle, instrument counts were correct. There are complications Estimated Blood Loss 5 Drains No Packing No Pathology yes Complications No immediate complications Condition stable Disposition PACU
--- NOTE | 2020-11-11 10:53 | PC.NURSE ---
Patient returned from OR.
[2020-11-11] MEDS: HYDROcodone/acetaminophen (*CRX) 5-325 MG TABLET 2 TAB PO ×3 (11:17→21:55)
[2020-11-11] MEDS: DICYCLOMINE HCL 10 MG CAPSULE PO ×2 (12:23→21:51)
[2020-11-11] MEDS: levETIRAcetam 500 MG TABLET PO ×2 (12:23→21:51)
[2020-11-11] MEDS: ALPRAZolam (*CRX) 0.5 MG TABLET 1 MG PO ×2 (12:23→18:14)
[2020-11-12 06:00] VITALS: BP 94/45; PULSE 68; RESP 20; TEMP 36.1; O2SAT 98; BMI 48.6
--- NOTE | 2020-11-12 07:51 | P.DS_ITS ---
DS: Admitting Diagnosis Admitting Diagnosis pain/pelvic masses DS: Summary Hospital Course Hospital Course: The patient was admitted through the emergency department complaining of pain she imaging which cervical right adnexal pain was such that she was admitted for pain she dilatation and curettage pathology pending at this point as well as ECC a 120. Pain was manageable is discharged follow up next week with results pathology CA 125 Time Spent with Patient Time attestation: Total time spent providing and/or coordinating discharge services: Exam Const: General: no acute distress Eyes: General: appearance normal, both eyes and all related structures Neck: Neck: supple and no JVD Thyroid: thyroid normal Resp: Effort & Inspection: normal respiratory effort Auscultation: clear to auscultation bilaterally Cardio: Rate: regular rate Rhythm: regular rhythm GI: Inspection: non-distended GI Palp: Yes Soft to palpation, No Tenderness to palpation present (GI) and No Guarding due to palpation present (GI) Auscultation: normal bowel sounds : General: Yes bladder normal to palpation External Female Exam: normal external appearance Speculum Exam - Vagina: normal vaginal discharge and No vaginal bleeding Speculum Exam - Cervix: nontender Bimanual exam- vagina & uterus: bladder normal to palpation and No Cervical tenderness present OB/external & speculum: No vaginal bleeding Skin: General skin exam: no rashes or lesions noted Extrem: General: normal to inspection and no edema Psych: Mental Status: mental status grossly normal Affect: normal affect DS: Data Data Completed and Pending Pending studies at discharge: Pending at discharge 11/11/20 09:51 Surgical [PTH] Routine Discharge Plan Discharge Attending physician on discharge: Brent Son Discharging Clinician: Brent Son Patient Disposition: Home, Self-Care Activity: may shower, no straining and pelvic rest Diet: heart healthy Wound Care Instructions: follow printed instructions Patient Instructions: Antibiotic Form, Dilation and Curettage (DC), Dilation and Curettage (GEN), Hysteroscopy (DC), Hysteroscopy (GEN) Stand Alone Forms: General Discharge Information Follow-up/Referrals: Brent Son MD [Physician] - Discharge Medications: New hydrocodone-acetaminophen 5-325 mg tablet 1 tablet PO Q4H PRN (Reason: pain) Qty: 30 RF: 0 No Action hydrocodone-acetaminophen [[place]] 7.5-325 mg tablet 1 tablet PO Q8H PRN (Reason: Breakthrough Pain, Severe) RF: 0 tramadol 50 mg tablet 50 mg PO Q6H PRN (Reason: Pain) RF: 0 alprazolam [Xanax] 1 mg tablet 1 mg PO BID RF: 0 levetiracetam 500 mg tablet 500 mg PO Q12H RF: 0 dicyclomine 10 mg Capsule 10 mg PO BID RF: 0 Date of admission: 11/10/20 14:29 Primary Care Provider: Rebel Montejo Admitting Provider: Brent Son Attending physician on admission: Brent Son Condition: Stable
--- NOTE | 2020-11-12 07:54 | PM.GYNPNOP ---
[facility] - A/P Postoperative Procedures: Procedures Operation Date: 11/11/20 09:00 Actual Procedure Side Surgeon p Hysteroscopy Dilation and Curettage Not Applicable Brent Son MD Time Spent With Patient Time: Total time spent is greater than 50% in coordination of care (as documented) at patient's floor/unit and/or counseling patient: Time with patient: less than 15 minutes [employer]- PN:Subj Post-Op Subjective Date/time seen: 11/12/20 07:54 pain tolerable. Pathology CA-125 pending patient will be discharged home with follow up next Wednesday Review of Systems Review of Systems: All systems reviewed & are unremarkable except as noted in HPI and below Exam Const: General: no acute distress Eyes: General: appearance normal, both eyes and all related structures Neck: Neck: supple and no JVD Thyroid: thyroid normal Resp: Effort & Inspection: normal respiratory effort Auscultation: clear to auscultation bilaterally Cardio: Rate: regular rate Rhythm: regular rhythm GI: Inspection: non-distended GI Palp: Yes Soft to palpation, No Tenderness to palpation present (GI) and No Guarding due to palpation present (GI) Auscultation: normal bowel sounds : General: Yes bladder normal to palpation External Female Exam: normal external appearance Speculum Exam - Vagina: normal vaginal discharge and No vaginal bleeding Speculum Exam - Cervix: nontender Bimanual exam- vagina & uterus: bladder normal to palpation and No Cervical tenderness present OB/external & speculum: No vaginal bleeding Skin: General skin exam: no rashes or lesions noted Extrem: General: normal to inspection and no edema Psych: Mental Status: mental status grossly normal Affect: normal affect [employer] - PN: Obj Data Vital Signs Vital Signs: Vital Signs - 24 hr 11/11/20 08:07 11/11/20 09:58 11/11/20 10:10 Temperature 97.9 F 98.4 F Pulse Rate 69 73 65 Respiratory Rate 20 21 H Blood Pressure 133/68 109/61 99/63 L Pulse Oximetry 100 100 100 11/11/20 10:25 11/11/20 10:40 11/11/20 10:55 Temperature 97.8 F Pulse Rate 65 59 L 63 Respiratory Rate 17 16 16 Blood Pressure 116/64 108/68 110/58 L Pulse Oximetry 99 96 100 11/11/20 11:10 11/11/20 11:40 11/11/20 12:40 Temperature 97.8 F 97.8 F 98 F Pulse Rate 72 64 63 Respiratory Rate 20 20 20 Blood Pressure 122/76 103/51 L 102/50 L Pulse Oximetry 98 96 96 11/11/20 18:10 11/11/20 22:00 Temperature 97.7 F 98.5 F Pulse Rate 77 79 Respiratory Rate 20 18 Blood Pressure 135/70 103/46 L Pulse Oximetry 100 96 Intake/Output Intake/Output: Intake & Output 11/09/20 11/10/20 11/11/20 11/12/20 23:59 23:59 23:59 23:59 Intake Total 1050 1730 530 Output Total 250 500 Balance 1050 1480 30 Meds/Results Medications: Active Medications Generic Name Dose Route Start Last Admin Trade Name Freq PRN Reason Stop Dose Admin Hydrocodone Bitart/Acetaminophen 2 tab 11/11/20 11:08 11/11/20 21:55 Hydrocodone/Acetaminophen (*Crx) 5-325 Mg Tablet PO 2 tab Q4H PRN Administration Pain Rated 7-10 Alprazolam 1 mg 11/11/20 11:30 11/11/20 18:14 Alprazolam (*Crx) 0.5 Mg Tablet PO 1 mg BID JAY Administration Dicyclomine HCl 10 mg 11/11/20 11:10 11/11/20 21:51 Dicyclomine Hcl 10 Mg Capsule PO 10 mg Q12HR JAY Administration Levetiracetam 500 mg 11/11/20 11:10 11/11/20 21:51 Levetiracetam 500 Mg Tablet PO 500 mg Q12HR JAY Administration Radiology Results: ITS Impressions Abdomen/Pelvis CT 11/09/20 14:28 IMPRESSION: Uterine enlargement and prominent fluid and/or soft tissue density within the endometrial cavity. Cervical or endometrial malignancy is not excluded. Gynecologic consult is recommended. Irregular right adnexal soft tissue mass, right lower quadrant, extending to the anterolateral right lower abdominal wall. Right ovarian malignancy is not excluded. This would be amenable to CT abdomen guided percutaneous needle biopsy. Pelv
[2020-11-12] MEDS: levETIRAcetam 500 MG TABLET PO (07:59)
[2020-11-12] MEDS: DICYCLOMINE HCL 10 MG CAPSULE PO (07:59)
[2020-11-12] MEDS: HYDROcodone/acetaminophen (*CRX) 5-325 MG TABLET 2 TAB PO (07:59)
[2020-11-12] MEDS: ALPRAZolam (*CRX) 0.5 MG TABLET 1 MG PO (07:59)
[2020-11-13 00:52] LABS: CA-125 26 U/mL (<35)
--- NOTE | 2020-12-17 12:25 | P.DS_ITS ---
DS: Admitting Diagnosis Discharge Date 11/12/20 Admitting Diagnosis Symptomatic uterine fibroids and right ovarian cyst DS: Summary Hospital Course Hospital Course: Patient was admitted for robotic hysterectomy and and bilateral salpingo-oophorectomy secondary to enlarged fibroid uterus and a complex right ovarian cyst. She underwent an unremarkable procedure and was discharged home without reservation. She was up, walking, ambulating, voiding without difficulty and generally without complaints Time Spent with Patient Time attestation: Total time spent providing and/or coordinating discharge services: Exam Const: General: no acute distress Eyes: General: appearance normal, both eyes and all related structures Neck: Neck: supple and no JVD Thyroid: thyroid normal Resp: Effort & Inspection: normal respiratory effort Auscultation: clear to auscultation bilaterally Cardio: Rate: regular rate Rhythm: regular rhythm GI: Inspection: non-distended GI Palp: Yes Soft to palpation, No Tenderness to palpation present (GI) and No Guarding due to palpation present (GI) Auscultation: normal bowel sounds : General: Yes bladder normal to palpation External Female Exam: normal external appearance Speculum Exam - Vagina: normal vaginal discharge and No vaginal bleeding Speculum Exam - Cervix: nontender Bimanual exam- vagina & uterus: bladder normal to palpation and No Cervical tenderness present OB/external & speculum: No vaginal bleeding Skin: General skin exam: no rashes or lesions noted Extrem: General: normal to inspection and no edema Psych: Mental Status: mental status grossly normal Affect: normal affect DS: Data Data Completed and Pending Completed studies during hospitalization: Pending at discharge 11/11/20 09:51 Surgical [PTH] Routine Discharge Plan Discharge Attending physician on discharge: Brent Son Consulting providers: Leo Morales ; Mj Ramos ; Baldemar Louis V. Discharging Clinician: Brent Son Patient Disposition: Home, Self-Care Activity: may shower, no straining and pelvic rest Diet: heart healthy Wound Care Instructions: follow printed instructions Patient Instructions: Antibiotic Form, Dilation and Curettage (DC), Dilation and Curettage (GEN), Hysteroscopy (DC), Hysteroscopy (GEN) Stand Alone Forms: General Discharge Information Follow-up/Referrals: Brent Son MD [Physician] - Discharge Medications: Continued hydrocodone-acetaminophen [[place]] 7.5-325 mg tablet 1 tablet PO Q8H PRN (Reason: Breakthrough Pain, Severe) RF: 0 tramadol 50 mg tablet 50 mg PO Q6H PRN (Reason: Pain) RF: 0 alprazolam [Xanax] 1 mg tablet 1 mg PO BID RF: 0 levetiracetam 500 mg tablet 500 mg PO Q12H RF: 0 dicyclomine 10 mg Capsule 10 mg PO BID RF: 0 No Action hydrocodone-acetaminophen 5-325 mg tablet 1 tablet PO Q4H PRN (Reason: pain) Qty: 30 RF: 0 Date of admission: 11/10/20 14:29 Primary Care Provider: Rebel Montejo Admitting Provider: Brent Son Attending physician on admission: Brent Son Condition: Stable
== END 2020-11-12 09:21 | disposition home or self-care (01) | DRG 517 ==
LOC: ANHED 18:06 → ANH2MED 19:20
PROVIDERS: Admitting Provider Obstetrics & Gynecology; Emergency Provider Emergency Medicine; PCP Emergency Medicine; Visit Provider Obstetrics & Gynecology
PROC: 0U5B8ZZ Destruction of Endometrium, Via Natural or Artificial Opening Endoscopic (ICD-10-PCS; CPT 58563; principal; 2020-11-11 09:00)
DX: N85.2 Hypertrophy of uterus (principal); R19.00 Intra-abdominal and pelvic swelling, mass and lump, unspecified site; R10.2 Pelvic and perineal pain; Z98.51 Tubal ligation status; Z79.899 Other long term (current) drug therapy; Z87.891 Personal history of nicotine dependence; Z88.0 Allergy status to penicillin
CPT/HCPCS: 36415; 74177; 76830; 76856; 80053; 81001; 81025; 83690; 85025; 86304; 87070; 87086; 87088; 87491; 87591; 87808; 88305; 88342; 93005; 96361; 96365; 96366; 96375; 96376; 99285; A9270; G0378; G0379; J0696; J1170; J1885; J1956; J2250; J2405; J2704; J3010; J7030; J7120; Q9967

== ENCOUNTER 2020-12-02 10:07 | Outpatient (CLI) | payer OTHER, SELFPAY ==
[2020-12-02 10:35] LABS: Basophils Percent Auto 0.3 % (0.2-1.2); Eosinophils Absolute Auto 0.1 K/mm3 (0-0.3); Eosinophils Percent Auto 1.4 % (0-4.4); Hematocrit 39.5 % (37.0-47.0); Hemoglobin 12.6 g/dL (12.0-15.0); Immature Granulocyte Absolute 0.03 K/mm3 (0.00-0.031); Immature Granulocyte Percent A 0.3 % (0-0.5); Mean Corpuscular HGB Conc 31.9 g/dl (32-36); Mean Corpuscular Hemoglobin 27.8 pg (26-34); Mean Platelet Volume 11.1 fl (7.4-10.4); Monocytes Absolute Auto 0.7 K/mm3 (0.1-0.6); Monocytes Percent Auto 7.2 % (2.6-8.5); Neutrophils Absolute Auto 7.7 K/mm3 (1.3-6.7); Neutrophils Percent Auto 76.8 % (45.5-73.1); Platelet Count Result 250 k/mm3 (150-375); Red Blood Count 4.54 M/mm3 (4.2-5.4); Red Cell Distribution Width 15.5 % (11.5-14.5)
== END 2020-12-02 10:08 | disposition home or self-care (01) ==
LOC: ANHSURGERY 10:10
PROVIDERS: PCP Emergency Medicine; Visit Provider Obstetrics & Gynecology
DX: Z01.812 Encounter for preprocedural laboratory examination (principal); N83.8 Other noninflammatory disorders of ovary, fallopian tube and broad ligament
CPT/HCPCS: 36415; 85025; 86850; 86900; 86901

== ENCOUNTER → 2020-12-03 02:53 | Outpatient (CLI) | payer OTHER, SELFPAY ==
[2020-12-03 20:47] LABS: SARS-CoV-2 RNA PCR Negative
== END ==
PROVIDERS: PCP Emergency Medicine; Visit Provider Obstetrics & Gynecology
DX: Z01.812 Encounter for preprocedural laboratory examination (principal); Z20.822 Contact with and (suspected) exposure to COVID-19
CPT/HCPCS: C9803; U0003; U0005

== ENCOUNTER 2020-12-06 02:38 | Day surgery (SDC) | payer OTHER, SELFPAY ==
[2020-11-29 10:50] VITALS: BMI 45.3
--- NOTE | 2020-12-04 09:52 | PM.IMHP ---
H&P: HPI History of Present Illness Date/Time: 12/04/20 09:52 This is a 50-year-old who is admitted for robotic hysterectomy and bilateral salpingo-oophorectomy secondary to enlarged fibroid uterus and a large right ovarian cyst. She this patient was 1st seen through the ER with a large mass and questionable uterine mass. She had been bleeding and underwent hysteroscopy D&C with benign findings. Her CA 125 was normal and she the soft for hysterectomy and bilateral salpingo-oophorectomy risks and benefits reviewed in great detail. She had all the answers to her questions. She asked to proceed Chief Complaint: Pelvic mass and bleeding Review of Systems Review of Systems: All systems reviewed & are unremarkable except as noted in HPI and below PMFSH Past Medical History Medical History Anxiety Brain tumor Chronic fatigue, unspecified LARIOS (dyspnea on exertion) Epilepsy Hypersomnia Left ventricular outflow tract obstruction Surgical History Surgical History History of cholecystectomy History of open heart surgery repair of left ventricular outflow obstruction History of tubal ligation Family History Family History Mother Hypertension Family history of cardiac disorder Social History Social History Smoking status: Never smoker Alcohol intake: never Substance use: never Substance use type: does not use Spiritual care concerns: No Meds Home Medications and Allergies Home Medications Medication Instructions Recorded Confirmed Type alprazolam 1 mg tablet 1 mg PO BID 05/03/19 11/29/20 History hydrocodone 7.5 mg-acetaminophen 1 tablet PO Q8H PRN 05/03/19 11/29/20 History 325 mg tablet tramadol 50 mg tablet 50 mg PO Q6H PRN 05/03/19 11/29/20 History levetiracetam 500 mg tablet 500 mg PO Q12H 09/04/20 11/29/20 History dicyclomine 10 mg PO BID 11/09/20 11/29/20 History Allergies Allergy/AdvReac Type Severity Reaction Status Date / Time Penicillins Allergy Severe Swelling Verified 11/29/20 10:49 of Lip/Tongue/Throat Exam Const: General: no acute distress Eyes: General: appearance normal, both eyes and all related structures Neck: Neck: supple and no JVD Thyroid: thyroid normal Resp: Effort & Inspection: normal respiratory effort Auscultation: clear to auscultation bilaterally Cardio: Rate: regular rate Rhythm: regular rhythm GI: Inspection: non-distended GI Palp: Yes Soft to palpation, No Tenderness to palpation present (GI) and No Guarding due to palpation present (GI) Auscultation: normal bowel sounds : External Female Exam: normal external appearance Speculum Exam - Vagina: normal appearance of the vagina Speculum Exam - Cervix: Cervical os closed Bimanual exam- vagina & uterus: enlarged Bimanual Exam- Adnexa, other: Adnexal mass present Skin: General skin exam: no rashes or lesions noted Extrem: General: normal to inspection and no edema Psych: Mental Status: mental status grossly normal Affect: normal affect Assessment and Plan Additional Plan Impression: This large ovarian cyst and enlarged uterus Plan: Robotic total vaginal hysterectomy and bilateral salpingo-oophorectomy
--- NOTE | 2020-12-05 12:01 | P.PNAN_ITS ---
Anes - Initial Pre Proc Eval Procedure: Operation Date: 12/06/20 09:30 Proposed Procedures p Robotic Assisted Total Vaginal Hysterectomy with Bilateral Salpingo- Oophorectomy - Brent Son MD Date/Time: 12/05/20 12:01 Surgeon: Brent Son MD Pre Op Diagnosis: enlarged uterus, pelvic pain, fibroids Patient Data Age: 50 Gender: F Height: 1.55 m Weight: 109 kg Allergies Allergy/AdvReac Type Severity Reaction Status Date / Time Penicillins Allergy Severe Swelling Verified 12/06/20 07:45 of Lip/Tongue/Throat/Rash Home Medications Medication Instructions Recorded Confirmed Type alprazolam 1 mg tablet 1 mg PO BID 05/03/19 12/06/20 History hydrocodone 7.5 mg-acetaminophen 1 tablet PO Q8H PRN 05/03/19 12/06/20 History 325 mg tablet tramadol 50 mg tablet 50 mg PO Q6H PRN 05/03/19 11/29/20 History levetiracetam 500 mg tablet 500 mg PO Q12H 09/04/20 12/06/20 History dicyclomine 10 mg PO BID 11/09/20 12/06/20 History hydrocodone-acetaminophen 1 tablet PO Q4H PRN #30 tablet 12/06/20 Rx Patient hx anesthesia problems: none Family hx anesthesia problems: none PMFSH Past Medical History Medical History Anxiety Brain tumor Chronic fatigue, unspecified LARIOS (dyspnea on exertion) Epilepsy Hypersomnia Left ventricular outflow tract obstruction Surgical History Surgical History History of cholecystectomy History of open heart surgery repair of left ventricular outflow obstruction History of tubal ligation Family History Family History Mother Hypertension Family history of cardiac disorder Social History Social History Smoking status: Never smoker Alcohol intake: never Substance use: never Substance use type: does not use Living arrangements: with family Spiritual care concerns: No Anes - Eval Final PreProcedure Day of Procedure 12/05/20 12:01 Patient weight: morbidly obese Heart: regular rate and rhythm Lungs: clear to auscultation and normal air movement Airway: Mallampati scale class II Neurological: alert and oriented Last oral intake: >/= 8 hours ASA classification: IV Emergent: no Anesthetic plan: proceed Anesthesia type and monitoring: general ETT Informed Consent: The patient's anesthetic plan and its attendant risks and benefits were discussed with the patient/family/POA. Questions were solicited and answers provided to the satisfaction of the patient/family/POA.
[2020-12-06] VITALS (9 sets, daily range): BP systolic 104–139; BP diastolic 61–80; PULSE 64–84; RESP 10–20; TEMP 36.1–37; O2SAT 94–100
--- NOTE | 2020-12-06 06:59 | WPDHPUPDATE1 ---
History and Physical Update Update Date/Time: 12/06/20 06:59 History and Physical has been reviewed, including an updated exam of the patient. There are NO changes in the patient's condition. Risks, benefits, and alternatives have been discussed and questions answered. Patient agrees to proceed with procedure.
[2020-12-06] MEDS: LACTATED RINGERS 1,000 ML 30 ML IV CONT ×2 (08:35→11:15)
[2020-12-06] MEDS: KETOROLAC 15 MG/ML VIAL (*BKC) IV PUSH (08:44)
[2020-12-06] MEDS: ceFAZolin 2 GM/D5W 50 ML 2 GM/50 ML BAG IVPB (09:22)
--- NOTE | 2020-12-06 10:56 | W.PM.PROC2 ---
Procedure Note - Detailed Date of Procedure 12/06/20 Pre-op Diagnosis enlarged uterus, pelvic pain, fibroids complex r ov cyst Post-op Diagnosis same Procedure Performed Robotic total vaginal hysterectomy and bilateral salpingo-oophorectomy with lysis of adhesions Surgeon Brent Son MD Anesthesia general Indications This 50-year-old female history of heavy bleeding enlarged fibroid and complex right ovarian cyst Findings Adhesions were noted. Uterus was enlarged and irregular with fibroids. A complex right ovarian cyst which appeared benign it was entangled with pelvic adhesions. Description of Procedure The patient was prepped draped in the normal sterile fashion placed in the lithotomy position. Under excellent general endotracheal anesthesia to the hysteroscopic. Anterior lip of the uterus grasped with a single-tooth tenaculum the uterus sounded to 12cm. Serial dilatation with fragmented dilators performed followed by passage of the 10. RUI and the 3. Cold cup. Next the 16 [place] catheter was placed in the bladder and drained of clear urine. The remainder the instruments removed and the gloves were changed. A supraumbilical incision was made in the [place] needle passed in the abdomen. Abdomen was filled with CO2 gas [id number]. The 8mm trocar advanced in the abdomen the downside visualized. No injury seen the gas was reattached the patient placed in Trendelenburg. Right and left lateral quadrant incisions made the 8mm trocars advanced under direct visualization assuring no injury. A right upper quadrant incision made and the 10mm trocar advanced under direct visualization assuring no injury. Multiple adhesions were seen from the omentum to the anterior abdominal wall as well as the uterus to the anterior abdominal wall and posteriorly as well. The robot was docked. Attention was turned to the console. The left round ligament was grasped, burned, cut. Anteriorly sharp dissection was necessary using occasional cautery to bring bladder off the fundus of the uterus and these were sharply dissected layer by layer to reflect the bladder caudally away from the cervix uterus the opposite round ligament which was clamped, burned, cut. The left ovary and tube were markedly adherent to bowel and omentum sharp dissection was required with occasional cautery being sure to avoid injury to the underlying small bowel and colon to which it was attached. Once this was clear the left infundibulopelvic structure was skeletonized and clamped, burned, cut and brought to the level of previously cut round ligament. Complex right ovarian cyst was seen but it did not have a cancerous appearance to it it appeared more to be a tubo-ovarian complex that was encased in scar tissue after dissecting away the bowel and omentum from this area the right infundibulopelvic structure was skeletonized clamped, burned, cut and brought to the level of the previously cut round. Next the left cardinal broad ligaments were serially skeletonized sharply dissecting the near the cervix and uterus clamping burning and cutting until the uterine vessels could be seen on left these were large tortuous and individually clamped, burned, cut. Next the right cardinal broad ligaments were serially skeletonized these were clamped, burned, cut and brought down the lateral edge of the uterus and cervix until the uterine vessels on the right could be seen these as well were large and tortuous and individually clamped, burned cut cut. Blanching the uterus was noted at colpotomy incision was made this uterus cervix ovaries and tubes removed the vagina. The vagina closed with continuous running 0V lock from lateral edge to lateral edge back to the midline [place] term was placed over the raw surface areas and blood loss estimated at50cc. The robot was undocked and the gas was removed from the abdomen. The incisions closed with 4-0 Monocryl and glue. The incisions on the a abdomen closed with 4 Monocr
[2020-12-06] MEDS: fentaNYL CITRATE INJ (*CRX) 100 MCG/2 ML VIAL 25 MCG IV PUSH ×2 (11:33→11:40)
--- NOTE | 2020-12-06 12:25 | PC.NURSE ---
This patient, Kayla Leggett, was received from PACU per bed to room 279. Patient/family oriented to unit policies and routines
[2020-12-06] MEDS: DEXTROSE 5%/LACTATED RINGERS 1,000 ML 125 ML IV CONT (13:42)
[2020-12-06] MEDS: HYDROcodone/acetaminophen (*CRX) 5-325 MG TABLET 1 TAB PO ×3 (16:57→23:52)
[2020-12-06] MEDS: DOCUSATE SODIUM 100 MG CAPSULE PO (16:57)
[2020-12-06] MEDS: IBUPROFEN 600 MG TABLET PO ×2 (16:58→23:52)
[2020-12-07 00:29] VITALS: BP 91/56; PULSE 71; RESP 18; TEMP 36.6; O2SAT 93
[2020-12-07 05:30] VITALS: BP 89/54; PULSE 74; RESP 18; TEMP 36.8; O2SAT 95
[2020-12-07] MEDS: HYDROcodone/acetaminophen (*CRX) 5-325 MG TABLET 1 TAB PO ×2 (05:37→10:02)
[2020-12-07] MEDS: IBUPROFEN 600 MG TABLET PO (05:37)
[2020-12-07] MEDS: levETIRAcetam 500 MG TABLET PO (05:38)
[2020-12-07 06:04] LABS: Basophils Percent Auto 0.4 % (0.2-1.2); Eosinophils Absolute Auto 0.1 K/mm3 (0-0.3); Eosinophils Percent Auto 1.3 % (0-4.4); Hematocrit 34.9 % (37.0-47.0); Hemoglobin 10.8 g/dL (12.0-15.0); Immature Granulocyte Absolute 0.03 K/mm3 (0.00-0.031); Immature Granulocyte Percent A 0.4 % (0-0.5); Lymphocytes Absolute Auto 1.11 K/mm3 (0.9-3.2); Lymphocytes Percent Auto 15.6 % (18.3-44.2); Mean Corpuscular HGB Conc 30.9 g/dl (32-36); Mean Corpuscular Hemoglobin 27.4 pg (26-34); Mean Corpuscular Volume 88.6 fl (80-100); Mean Platelet Volume 10.2 fl (7.4-10.4); Monocytes Absolute Auto 0.5 K/mm3 (0.1-0.6); Monocytes Percent Auto 7.5 % (2.6-8.5); Neutrophils Absolute Auto 5.3 K/mm3 (1.3-6.7); Neutrophils Percent Auto 74.8 % (45.5-73.1); Platelet Count Result 315 k/mm3 (150-375); Red Blood Count 3.94 M/mm3 (4.2-5.4); Red Cell Distribution Width 15.3 % (11.5-14.5); White Blood Count 7.1 K/mm3 (4.5-10.0)
--- NOTE | 2020-12-07 08:44 | WPDANESPN ---
Anes - Prog Note Post-Op Date/Time: 12/07/20 08:44 Cardiovascular status: normal Respiratory status: normal Airway patency: baseline Mental status: baseline Post-Op hydration status: normal Vital Signs: Last Vital Signs Temp 98.2 F 12/07/20 05:30 Pulse 74 12/07/20 05:30 Resp 18 12/07/20 05:30 BP 89/54 L 12/07/20 05:30 Pulse Ox 95 12/07/20 05:30 Pain Score (VAS): 0 I/O: Intake & Output 12/06/20 12/07/20 12/07/20 23:59 07:59 15:59 Intake Total 700 460 Output Total 925 300 Balance -225 160 Laboratory Tests 12/07/20 05:40 12/07/20 05:40 WBC 7.1 RBC 3.94 L Hgb 10.8 L Hct 34.9 L MCV 88.6 MCH 27.4 MCHC 30.9 L RDW 15.3 H Plt Count 315 MPV 10.2 Immature Gran % (Auto) 0.4 Neut % (Auto) 74.8 H Lymph % (Auto) 15.6 L [place] % (Auto) 7.5 Eos % (Auto) 1.3 Baso % (Auto) 0.4 Lymph # (Auto) 1.11 [place] # (Auto) 0.5 Eos # (Auto) 0.1 Baso # (Auto) 0.0 Abs Immat Gran (auto) 0.03 Absolute Neuts (auto) 5.3 Absolute Nucleated RBC 0.0 Nucleated RBC % 0.0 Patient Feedback: Patient satisfied with anesthetic care.
[2020-12-07 10:00] VITALS: BP 118/74; PULSE 91; RESP 20; TEMP 36.6
[2020-12-07] MEDS: ENOXAPARIN 40 MG/0.4 ML SYRINGE SUB-Q (10:01)
[2020-12-07] MEDS: DOCUSATE SODIUM 100 MG CAPSULE PO (10:01)
--- NOTE | 2020-12-07 10:03 | PM.GYNPNOP ---
ENTRY LEVEL MARKETING REPRESENTATIVE - A/P Postoperative Procedures: Procedures Operation Date: 12/06/20 09:30 Actual Procedure Side Surgeon p Robotic Assisted Total Vaginal Hysterectomy with Bilateral Salpingo-Oophorectomy Bilateral Brent Son MD A: POD#1, doing well. P: Home to f/u 2 weeks. Time Spent With Patient Time with patient: less than 15 minutes ENTRY LEVEL MARKETING REPRESENTATIVE- PN:Subj Post-Op Subjective Date/time seen: 12/07/20 10:03 Interval history: Pain OK. Tolerating diet. Voiding. Would like to go home. Exam Narrative: AVSS I/O OK ABD soft, nontender. Incisions c/d/i. EXT nontender ENTRY LEVEL MARKETING REPRESENTATIVE - PN: Obj Data Vital Signs Vital Signs: Vital Signs - 24 hr 12/06/20 11:15 12/06/20 11:30 12/06/20 11:45 Temperature 36.3 C L Pulse Rate 84 66 68 Respiratory Rate 14 16 13 Blood Pressure 118/72 109/68 111/73 Pulse Oximetry 100 100 94 12/06/20 12:00 12/06/20 12:13 12/06/20 12:30 Temperature 36.1 C L Pulse Rate 64 67 64 Respiratory Rate 10 L 16 18 Blood Pressure 112/80 117/77 123/77 Pulse Oximetry 95 96 12/06/20 16:55 12/06/20 20:09 12/07/20 00:29 Temperature 36.6 C 37.0 C 36.6 C Pulse Rate 72 81 71 Respiratory Rate 18 19 18 Blood Pressure 108/62 104/61 91/56 L Pulse Oximetry 96 93 12/07/20 05:30 Temperature 36.8 C Pulse Rate 74 Respiratory Rate 18 Blood Pressure 89/54 L Pulse Oximetry 95 Intake/Output Intake/Output: Intake & Output 12/04/20 12/05/20 12/06/20 12/07/20 23:59 23:59 23:59 23:59 Intake Total 1150 460 Output Total 925 300 Balance 225 160 Meds/Results Medications: Active Medications Generic Name Dose Route Start Last Admin Trade Name Freq PRN Reason Stop Dose Admin Hydrocodone Bitart/Acetaminophen 1 tab 12/06/20 12:22 12/07/20 10:02 Hydrocodone/Acetaminophen (*Crx) 5-325 Mg Tablet PO 1 tab Q3H PRN Administration Pain Rated 5 or Less Hydrocodone Bitart/Acetaminophen 1 tab 12/06/20 12:22 Hydrocodone/Acetaminophen (*Crx) 10-325 Mg Tablet PO Q3H PRN Pain Rated 6 or Greater Docusate Sodium 100 mg 12/06/20 17:00 12/07/20 10:01 Docusate Sodium 100 Mg Capsule PO 100 mg BID JAY Administration Enoxaparin Sodium 40 mg 12/07/20 09:00 12/07/20 10:01 Enoxaparin 40 Mg/0.4 Ml Syringe SUB-Q 40 mg DAILY JAY Administration Ibuprofen 600 mg 12/06/20 12:22 12/07/20 05:37 Ibuprofen 600 Mg Tablet PO 600 mg Q6H PRN Administration Cramping Ketorolac Tromethamine 30 mg 12/06/20 12:22 Ketorolac 30 Mg/Ml Vial (*Bkc) IV PUSH 12/11/20 12:21 Q6H PRN Pain Rated 4-6 Levetiracetam 500 mg 12/07/20 05:30 12/07/20 05:38 Levetiracetam 500 Mg Tablet PO 500 mg DAILY@0530 JAY Administration Naloxone HCl 0.1 mg 12/06/20 12:22 Naloxone Hcl 0.4 Mg/Ml Vial IV PUSH Q2M PRN Respiratory rate less than 10 Ondansetron HCl 4 mg 12/06/20 12:22 Ondansetron Inj 4 Mg/2 Ml Vial IV PUSH Q6H PRN Nausea And Vomiting Simethicone 80 mg 12/06/20 12:22 Simethicone 80 Mg Tab.Chew PO Q2H PRN Gas Labs CBC & Chem 7: 12/07/20 05:40 Labs: Laboratory Results - last 24 hr 12/07/20 05:40 WBC 7.1 RBC 3.94 L Hgb 10.8 L Hct 34.9 L MCV 88.6 MCH 27.4 MCHC 30.9 L RDW 15.3 H Plt Count 315 MPV 10.2 Immature Gran % (Auto) 0.4 Neut % (Auto) 74.8 H Lymph % (Auto) 15.6 L [place] % (Auto) 7.5 Eos % (Auto) 1.3 Baso % (Auto) 0.4 Lymph # (Auto) 1.11 [place] # (Auto) 0.5 Eos # (Auto) 0.1 Baso # (Auto) 0.0 Abs Immat Gran (auto) 0.03 Absolute Neuts (auto) 5.3 Absolute Nucleated RBC 0.0 Nucleated RBC % 0.0
== END 2020-12-07 11:00 | disposition home or self-care (01) ==
LOC: ANHSURGERY 07:12 → ANHOB2 12:49
PROVIDERS: PCP Emergency Medicine; Visit Provider Obstetrics & Gynecology
PROC: (CPT 58552; principal; 2020-12-06 09:30)
DX: D25.1 Intramural leiomyoma of uterus (principal); N80.0 Endometriosis of uterus; N73.6 Female pelvic peritoneal adhesions (postinfective); D27.1 Benign neoplasm of left ovary; G40.909 Epilepsy, unspecified, not intractable, without status epilepticus; F41.9 Anxiety disorder, unspecified; R53.82 Chronic fatigue, unspecified
CPT/HCPCS: 58552; S2900; 36415; 85025; 88307; 99199; A9270; J0690; J1100; J1170; J1650; J1885; J2250; J2405; J2704; J2710; J3010; J7030; J7120; J7121

== ENCOUNTER 2020-12-31 12:09 | Outpatient (CLI) | payer OTHER, SELFPAY ==
--- NOTE | ~2020-12-31 | XR_ITS ---
EXAMINATION: XR chest 2V DATE: 12/31/2020 12:44 INDICATION: Dyspnea. TECHNIQUE: Frontal and lateral views of the chest were obtained. COMPARISON: CT abdomen and pelvis 11/09/2020 FINDINGS: There is no pneumonia, pleural effusion, or pneumothorax. Cardiomegaly is noted. Median bro rnotomy wires are noted. Surgical clips in the right upper quadrant are likely from cholecystectomy. IMPRESSION: 1. Cardiomegaly. Reviewed, dictated and finalized at location A. IMPRESSION: 1. Cardiomegaly.
--- NOTE | ~2020-12-31 | XR_ITS ---
EXAMINATION: XR shoulder LT min 2V DATE: 12/31/2020 12:46 INDICATION: Left shoulder pain. Dislocation. TECHNIQUE: 4 views of left shoulder were obtained. COMPARISON: None. FINDINGS: Bone alignment is normal. No fracture. There is mild osteoarthritis of glenohumeral joint a nd moderate osteoarthritis of acromioclavicular joint. Median sternotomy wires are noted. IMPRESSION: 1. Polyarticular osteoarthritis. Reviewed, dictated and finalized at location A.
--- NOTE | ~2020-12-31 | XR_ITS ---
EXAMINATION: XR elbow LT min 3V DATE: 12/31/2020 12:45 INDICATION: Left elbow pain. TECHNIQUE: 5 views of left elbow were obtained. COMPARISON: None. FINDINGS: Bone alignment is normal. No fracture. Joint spaces are well maintained. There is no elbow joint effusion. IMPRESSION: 1. Normal left elbow. Reviewed, dictated and finalized at location A. IMPRESSION: 1. Normal left elbow.
== END 2020-12-31 12:10 | disposition home or self-care (01) ==
LOC: ANHIMG 12:14
PROVIDERS: PCP Emergency Medicine; Visit Provider Emergency Medicine
DX: R06.00 Dyspnea, unspecified (principal); M25.529 Pain in unspecified elbow; I51.7 Cardiomegaly; M19.012 Primary osteoarthritis, left shoulder
CPT/HCPCS: 71046; 73030; 73080

== ENCOUNTER 2021-11-21 11:42 | Emergency (ER) | payer OTHER, SELFPAY ==
[2021-11-21 11:53] VITALS: BP 130/90; PULSE 93; RESP 18; TEMP 36.4; O2SAT 99
--- NOTE | 2021-11-21 11:54 | ED.EAR ---
HPI - Ear Problem General Chief complaint: Ear Stated complaint: ear pain Time Seen by Provider: 11/21/21 11:50 Source: patient and RN notes reviewed Mode of arrival: ambulatory Limitations: no limitations History of Present Illness HPI Narrative: 51-year-old female presents to the [facility] with complaints of right ear pain. Patient states that she fell, did not hit head. No loss of consciousness, no blurriness about a week ago. Thought there was something in it had been using Q-tips to digs something out. Pain has been increasing. Pain started a day or so after she fell. Has a history of seizures and anxiety Related Data Home Medications Medication Instructions Recorded Confirmed alprazolam 1 mg tablet (Xanax) 1 mg PO BID 05/03/19 11/21/21 tramadol 50 mg tablet 50 mg PO Q6H PRN Pain 05/03/19 11/21/21 levetiracetam 500 mg tablet 500 mg PO Q12H 06/06/21 11/21/21 (Keppra) duloxetine 60 mg capsule,delayed 60 mg PO DAILY 11/21/21 11/21/21 release Allergies Allergy/AdvReac Type Severity Reaction Status Date / Time Penicillins Allergy Severe Swelling Verified 11/21/21 11:55 of Lip/Tongue/Throat/Rash Review of Systems Review of Systems: All systems reviewed & are unremarkable except as noted in HPI and below Constitutional: Constitutional: Reports no additional constitutional complaints, Denies chills and Denies fever(s) Eyes: Eyes: Reports no additional eye complaints ENT: Reports as per HPI (right ear pain) Cardiovascular: Cardiovascular: Reports no additional cardiovascular complaints Respiratory: Respiratory: Reports no additional respiratory complaints Gastrointestinal: Gastrointestinal: Reports no additional gastrointestinal complaints Musculoskeletal: Musculoskeletal: Reports no additional musculoskeletal complaints Integumentary/Breasts: Skin/Breast: Reports system reviewed and no additional complaints, except as docu Neurologic: Reports system reviewed and no additional complaints, except as documented Psychiatric: Psychiatric: Reports no additional psychiatric complaints Allergic/Immunologic: Allergic/Immunologic: Reports no additional allergic/immunologic complaints PMFSH Past Medical History Medical History Anxiety Brain tumor Chronic fatigue, unspecified LARIOS (dyspnea on exertion) Epilepsy Hypersomnia Left ventricular outflow tract obstruction Surgical History Surgical History History of cholecystectomy History of open heart surgery repair of left ventricular outflow obstruction History of tubal ligation Family History Family History Mother Hypertension Family history of cardiac disorder Social History Social History Smoking status: Never smoker Alcohol intake: never Substance use: never Substance use type: does not use Spiritual care concerns: No Comments At the time of my signature, I reviewed and agree with the nursing past medical, surgical, social, and family history. There is no relevant family history pertinent to the patient complaint. Exam Const: General: healthy appearing, no acute distress and alert Nutritional Appearance: well nourished Orientation/consciousness: patient oriented x3 Limitations: no limitations HENMT: Head: normal to inspection Ears: external ears normal, TM's normal bilaterally (TM pearly, intact, no perforation) and Abnormal EAC present erythema on the right and edema on the right Face and sinus: normal facial exam Mouth: Yes Normal oral and palatal mucosa present Teeth and gingiva: dentition normal Throat: posterior oropharynx normal and uvula midline Eyes: General: appearance normal, both eyes and all related structures Pupils: Equal, round and reactive pupils present Neck: Neck: normal v
== END 2021-11-21 12:08 | disposition home or self-care (01) ==
PROVIDERS: Emergency Provider Nurse Practitioner; PCP Emergency Medicine
DX: S00.411A Abrasion of right ear, initial encounter (principal); X58.XXXA Exposure to other specified factors, initial encounter; H60.391 Other infective otitis externa, right ear; F41.9 Anxiety disorder, unspecified; G40.909 Epilepsy, unspecified, not intractable, without status epilepticus
CPT/HCPCS: 99213; G0463

== ENCOUNTER 2022-05-26 14:49 | Outpatient (CLI) | payer OTHER, SELFPAY ==
--- NOTE | ~2022-05-26 | MM_ITS ---
EXAMINATION: MM screening julianna BI w franklin HISTORY: Screening mammogram TECHNIQUE: Craniocaudal and mediolateral oblique 3-D tomosynthesis images were obtained and synthetic 2-D images were generated. CAD analysis was submitted and interpreted. COMPARISON: 04/24/2020, 04/07/2019 BREAST PARENCHYMAL COMPOSITION: There are scattered areas of fibroglandular density. FINDINGS: No suspicious mass, calcification, or architectural distortion are identified in either rosalia ast to suggest malignancy. There has been no suspicious interval change. IMPRESSION: 1. No mammographic evidence of malignancy. 2. Recommend routine screening mammography in one year. BI-RADS Category 1: Negative Reviewed, dictated and finalized at location A. 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
== END 2022-05-26 14:50 | disposition home or self-care (01) ==
PROVIDERS: PCP Emergency Medicine; Visit Provider Emergency Medicine
DX: Z12.31 Encounter for screening mammogram for malignant neoplasm of breast (principal)
CPT/HCPCS: 77063; 77067

== ENCOUNTER 2023-09-09 14:28 | Outpatient (CLI) | payer OTHER, SELFPAY ==
--- NOTE | ~2023-09-09 | MM_ITS ---
EXAMINATION: MM screening julianna BI w franklin HISTORY: Screening TECHNIQUE: Craniocaudal and mediolateral oblique 3-D tomosynthesis images were obtained and synthetic 2-D images were generated. CAD analysis was submitted and interpreted. COMPARISON: Comparison to multiple prior studies sequentially, with oldest reviewed study dated 04/07. BREAST PARENCHYMAL COMPOSITION: There are scattered areas of fibroglandular density. FINDINGS: There is no evidence of suspicious mass, calcification, or architectural distortion to sugg est malignancy in either breast. There has been no suspicious interval change. IMPRESSION: 1. No mammographic evidence of malignancy. 2. Recommend routine screening mammography in one year. BI-RADS Category 1: Negative Reviewed, dictated and finalized at location B.
== END 2023-09-09 14:29 | disposition home or self-care (01) ==
LOC: ANHIMG 14:29
PROVIDERS: PCP Emergency Medicine; Visit Provider Emergency Medicine
DX: Z12.31 Encounter for screening mammogram for malignant neoplasm of breast (principal)
CPT/HCPCS: 77063; 77067

== ENCOUNTER 2024-12-26 13:35 | Outpatient (CLI) | payer OTHER, SELFPAY ==
--- NOTE | ~2024-12-26 | MM_ITS ---
EXAMINATION: MM screening julianna BI w franklin HISTORY: Screening TECHNIQUE: Craniocaudal and mediolateral oblique 3-D tomosynthesis images were obtained and synthetic 2-D images were generated. CAD analysis was submitted and interpreted. COMPARISON: Comparison to multiple prior studies sequentially, with oldest reviewed study dated , 04/07/2019 BREAST PARENCHYMAL COMPOSITION: There are scattered areas of fibroglandular density. FINDINGS: There is no evidence of suspicious mass, calcification, or architectural distortion to suggest malignancy in either breast. IMPRESSION: 1. No mammographic evidence of malignancy. 2. Recommend routine screening mammography in one year. BI-RADS Category 1: Negative Reviewed, dictated and finalized at location B.
--- OUTSIDE RECORDS SUMMARY | 2024-12-26 14:32 | XMS_ITS | Encounter Summary ---
Author Organization [facility] Address [address] [place] [address] Phone Care Team Providers Care Master Scheduler Name Role Phone Rebel Montejo Primary Care Provider [phone] Heriberto Kowalski MD Unavailable [phone] Encounter Details Date Type Department Care Team (Late st Contact Info) Description 11/13/2020 Telephone [facility] [address] [place] [address] Heriberto Kowalski MD [address] [place] [address] Social History Tobacco Use Types Packs/Day Years Used Date Smoking Tobacco: Never Smokeless Tobacco: Never Alcohol Use Standard Drinks/Week Comments Not Currently 0 (1 standard drink = 0.6 oz pur e alcohol) PHQ-2 Answer Date Recorded Total Score - Questions 1-9 0 07/21 Sexually Active Control Partners Comments Not Currently Comments No Sex and Gender Information Value Date Recorded Sex Assigned at Not on file Legal Sex Female 12:05 PM CDT Gender Identity Not on file Sexual Orientation Not on file Occupation Industry Job Start Date Job End Date Disabled Not on file Not on file Not on file documented as of this encounter Miscellaneous Notes * Telephone Encounter - Claribel Carlisle - 11/13/2020 1:10 PM CDT Pt is hospitalize will call back to r/s hr appt on 11/13/2020 documented in this encounter Plan of Treatment Not on file documented as of this encounter Visit Diagnoses Not on filedocumented in this encounter Additional Health Concerns Assessment Noted Time PHQ-9 Depression Total Score: 0 08/10/19 21 10:55 AM CDT documented as of this encounter Care Teams Master Scheduler Relationship Specialty Start Date End Date Rebel Montejo [address] [place] [address] PCP - General Family Medicine 01/02/20 Heriberto Kowalski MD [address] [place] [address] Consulting Physician Hematology 02/28/20 documented as of this encounter
--- OUTSIDE RECORDS SUMMARY | 2024-12-26 14:32 | XMS_ITS | Clinical Summary ---
Author Organization [facility] Address [address] [place] [address] Phone Care Team Providers Care Supervisor Water Softener Service Name Role Phone Rebel oMntejo Primary Care Provider [phone] Heriberto Kowalski MD Unavailable [phone] Allergies Active Allergy Reactions Criticality Noted Date Comments Penicillins Rash,Swelling Low 11/01/2018 Tongue swells Medications ALPRAZolam (XANAX) 1 MG Tablet Take 1 mg by mouth. 10/04/2018 Active traMADol (ULTRAM) 50 MG Tablet 1 tablet as needed 10/04/2018 Active HYDROcodone-acet aminophen (NORCO) 7.5-325 MG Tablet TAKE 1 TABLET BY MOUTH EVERY 4 HOURS NEEDED FOR PAIN 12/28/2019 Active promethazine (PHENERGAN) 25 MG Tablet 04/29/2020 Active folic acid (FOLVITE) 1 MG TabletIndication s:Anemia due to folic acid deficiency, unspecified deficiency type Take 1 Tablet by mouth daily. 30 Tablet 1 06/03/2020 Active levETIRAcetam (KEPPRA) 500 MG Tablet 07/27/2020 Active DULoxetine (CYMBALTA) [address] Particles TAKE 1 CAPSULE BY MOUTH EVERY DAY 06/16/2021 Active estradiol (ESTRACE) 1 MG Tablet Take 1 mg by mouth daily. 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 deficiency 06/18/2021 History of brain tumor 06/18/2021 Vitamin D deficiency 06/18/2021 Mitral regurgitation 02/06/2021 Easy fatigability 02/06/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 membrane 12/31/2020 Hypersomnia 12/31/2020 Hyperparathyroidism 12/31/2020 Heart murmur 12/31/2020 Iron deficiency anemia due to chronic blood loss 01/26/2020 Fibromyalgia 12/30/2018 Epileptic seizure 12/30/2018 Bilateral headache 12/30/2018 Immunizations Immunization Administration Dates Next Due Influenza Vaccine, Quadrivalent, PF 12/12/2018 Family History Relation Name Status Comments Father Mother Alive Social History Tobacco Use Types Packs/Day Years Used Date Smoking Tobacco: Never Smokeless Tobacco: Never Alcohol Use Standard Drinks/Week Comments Not Currently 0 (1 standard drink = 0.6 oz pur e alcohol) PHQ-2 Answer Date Recorded Total Score - Questions 1-9 0 06/21 Sexually Active Control Partners Comments Not Currently Comments No Sex and Gender Information Value Date Recorded Sex Assigned at Not on file Legal Sex Female 12:05 PM CDT Gender Identity Not on file Sexual Orientation Not on file Occupation Industry Job Start Date Job End Date Disabled Not on file Not on file Not on file Last Filed Vital Signs Vital Sign Reading Time Taken Comments Blood Pressure 124/90 07/16/2021 12:57 PM CDT Pulse 61 07/16/2021 12:57 PM CDT Temperature 36.7 C (98 F) 07/16/2021 12:57 PM CDT Respiratory Rate 18 07/16/2021 12:5 7 PM CDT Oxygen Saturation 98% 07/16/2021 12: 57 PM CDT Inhaled Oxygen Concentration - - Weight 132.5 kg (292 lb 1.6 oz) 022 12:57 PM CDT Height 157.5 cm (5' 2) 07/16/2021 12:5 7 PM CDT Body Mass Index 53.43 07/16/2021 12:57 PM CDT Plan of Treatment Health Maintenance Due Date Last Done Comments Hepatitis C Virus (HCV) Screening 1972 TdaP Immunization 1972 Hepatitis B Immunization (1 of 3 - 19+ 3-dose series) 11/05/1991 Cologuard 2017 Colonoscopy 2017 Colorectal Cancer Screening 2017 Immunochemical Fecal Occult Blood 2017 Pneumococcal Immunization (5 0+ years) (1 of 1 - PCV) 2022 Zoster Immunization (1 of 2) 2022 Influenza Immunization (#1) 2024 12/12/2018 SARS-COV-2 Immunization (1 - season) 2024 Respiratory Syncytial Virus (RSV) Immunization (Adult) (1 - 1-dose 75+ series) 11/05/2047 Human Papillomavirus (HPV) Immunization Aged Out No longer eligible b ased on patient's age to complete this topic Meningococcal Immunization (ACWY) Aged Out No longer eligible based on patient's age to complete this topic Rotavirus Immunization Aged Out No lo nger eligible based on patient's age to complete this topic Insurance MEDICAID [employer] Care Teams Supervisor Water Softener Service Relationship Specialty Start Date End Date Rebel Montejo [address] [place] [address] PCP - General Family Medicine 01/02/20 Heriberto Kowalski MD [address] [place] [address] Consulting Physician Hematology 02/28/20
--- OUTSIDE RECORDS SUMMARY | 2024-12-26 14:32 | XMS_ITS | Clinical Summary ---
Author Organization [facility] Address [address] [place] [address] Care Team Providers Care Bit And Shank Department Supervisor Name Role Phone Cheko Smith MD Unavailable [phone] Daily, Star Gann MD Unavailable Unavailable Rebel Montejo MD Primary Care Provider [phone] Allergies Active Allergy Reactions Criticality Noted Date Comments Penicillins Rash,Swelling Low 11/01/2018 Tongue swells Medications topiramate 50 MG TabIndications: Migraine Take 1 tablet by mouth 2 (two) times a day. Indications: Migraine Headache 9 Active traMADol 50 MG tabletIndicatio ns:Chronic Pain Take 50 mg by mouth every 6 (six) hours as needed for Pain. Indications: Chronic Pain 0 9 Active LYRICA 300 MG CapIndications: Fibromyalgia Syndrome Take 1 capsule by mouth 2 (two) times daily. Indications: Fibromyalgia Syndrome 5 9 Active ALPRAZolam 1 MG tabletIndicatio ns:Anxiety Take 1 mg by mouth 2 (two) times daily as needed for Anxiety. Indications: Feeling Anxious 0 9 Active metoprolol tartrate 25 MG tablet [The details of the medication are not available because there are pending changes by a home health clinician.] 60 tablet 1 9 Active Additional Information Patient taking differently:25 mg Oral 2 times daily, Contact Stopper Setter for further refills,Indications: Hypertension, Reported on 12/28/2018 furosemide 40 MG tablet [The details of the medication are not available because there are pending changes by a home health clinician.] 7 tablet 9 Active Additional Information Patient taking differently:40 mg Oral Daily,Indications: Diuretic Therapy, Reported on 12/28/2018 potassium chloride CR 10 MEQ Tab CR tablet [The details of the medication are not available because there are pending changes by a home health clinician.] 7 tablet 9 Active Additional Information Patient taking differently:10 mEq Oral Daily,Indications: Potassium Supplement or Potassium-Sparing Diuretic Therapy, Reported on 12/28/2018 aspirin 81 MG chewable tabletIndicatio ns:Heart Health Chew 1 tablet (81 mg total) by mouth daily. Indications: Heart Health 90 tablet 1 9 Active Active Problems Problem Noted Date Diagnosed Date Subaortic membrane (HHS/HCC) Heart murmur Epilepsy (CMS/HCC HHS/HCC) Benign brain tumor (CMS/HCC HHS/HCC) Dyspnea on exertion Hypersomnia Hyperparathyroidism (HHS/HCC) Immunizations Immunization Administration Dates Next Due Afluria 36 MONTHS+ (Prefilled Syringe IIV4) 11/21 Family History Medical History Relation Comments brain anuerysm Father Hypertension Mother cardiac arrhythmia Mother Relation Status Comments Brother Alive Father (Age 52) Maternal Grandfather Maternal Grandmother Mother Alive Paternal Grandfather Paternal Grandmother Sister 1 Alive Sister 2 Alive Social History Tobacco Use Types Packs/Day Years Used Date Smoking Tobacco: Never Smokeless Tobacco: Never Alcohol Use Standard Drinks/Week Comments No 0 (1 standard drink = 0.6 oz pur e alcohol) AUDIT-C Answer Date Recorded Frequency of Alcohol Consumption Never 11/01/2018 Average Number of Drinks Not on file 019 Frequency of Binge Drinking Not on file 10/20 Comments Unknown Sex and Gender Information Value Date Recorded Sex Assigned at Not on file Legal Sex Female 8:08 PM CDT Gender Identity Not on file Sexual Orientation Not on file Occupation Industry Job Start Date Job End Date Not on file Not on file Not on file Not on file Last Filed Vital Signs Vital Sign Reading Time Taken Comments Blood Pressure 110/70 12/29/2018 12:36 PM CDT Pulse 60 12/29/2018 12:36 PM CDT Temperature 36.6 C (97.8 F) 12/29/2018 12:36 PM CDT Respiratory Rate 18 12/29/2018 12:3 6 PM CDT Oxygen Saturation 98% 12/22/2018 12: 18 PM CDT Inhaled Oxygen Concentration - - Weight 131.9 kg (290 lb 12.6 oz) 12/12/2018 4:15 AM CDT Height 160 cm (5' 3) 12/08/2018 8:37 AM CDT Body Mass Index 51.51 12/08/2018 8:37 AM CDT Plan of Treatment Health Maintenance Due Date Last Done Comments Cervical Cancer Screening Pa p Smear (Age 30 to 64) Every 3 Years 1972 Colorectal Cancer Screening Colonoscopy (10 Years) 1972 Annual Physical 11/05/1975 Hepatitis C 1990 DTaP, Tdap and Td Vaccines ( 1 - Tdap) 11/05/1991 Hepatitis B Vaccines (1 of 3 - 19+ 3-dose series) 11/05/1991 Cervical Cancer Screening Pa p with HPV Testing (Age 30 to 64) Every 5 Years 2002 Cervical Cancer Screening with HPV 2002 Mammogram Screening 2012 Pneumococcal Vaccine: 50+ Ye ars (1 of 1 - PCV) 2022 Zoster Vaccines (1 of 2) 2022 COVID-19 Vaccine (1 - 2023-2 5 season) 2024 Influenza Adult (#1) 2024 12/12/2018 Meningococcal B Vaccine Aged Out No l onger eligible based on patient's age to complete this topic Meningococcal Vaccine Aged Out No kiran surya eligible based on patient's age to complete this topic RSV Immunizations Under 20 Months Aged Out No longer eligible based on patient's age to complete this topic Medical Devices Implanted Type Area Industrial Arts Teacher Device Identifier Shelf Expiration Date Model / Serial / Lot Suture Sternotomy Kit - [id number] Implanted:Qty: 1 on 12/08/2018 by Daily, Star Gann MD at [facility] N/A: [employer]yuki 04/22/2023 [id number] / / [id number] Description:5-WIRES FROM PAC K Wire Sut 18in Myowr2 7;.5 [place]; Ccs-1 Mfil; Cnv - [id number] Implanted:Qty: 1 on 12/08/2018 by Daily, Star Gann MD at [facility] N/A: [employer]yuki 06/21/2023 [id number] / / [id number] Description:2-WIRES FROM [facility] K Insurance [facility] Advance Directives * Full Code (Latest Code Status on File) Date Activated Date Inactivated Comments 12/10/2018 12:47 PM 12/12/2018 12:47 PM * Full Code Date Activated Date Inactivated Comments 11/08/2018 2:13 PM 11/08/2018 7:03 PM Care Teams Bit And Shank Department Supervisor Relationship Specialty Start Date End Date Rebel Montejo MD [address] [address] PCP - General FAMILY PRACTICE 11/02/18 Cheko Smith MD [facility]. [address] [place], [place] [id number] [place] Stopper Setter INTERVENTIONAL CARDIOLOGY 11/01/18 Daily, Star Gann MD [facility]. [address] [place] [address] Referring Physician CARDIOTHORACIC SURGERY 11/02/18
--- OUTSIDE RECORDS SUMMARY | 2024-12-26 14:32 | XMS_ITS | Clinical Summary ---
Author Organization [facility] Address [address] [place] [address] Care Team Providers Care Furnace Repair Mechanic Name Role Phone Rebel Montejo MD Primary Care Provider Source Comments [facility],non-owned Affiliates and Associated Physician Practices is amultiple site organization consisting of ambulatory clinics and hospital sitesin [place], [place], [place] and [place]. This disclosure is being madepursuant to the Care Everywhere program and may not contain all information available regarding this patient. Last updated 17.[facility] Allergies Active Allergy Reactions Criticality Noted Date Comments Penicillamine Unknown 01/12/2019 Penicillins Rash,Other Medium 02/01/2018 Tongue swells Medications * Be aware that medications may not be up to date on this document. Alwaysverify current medications with the patient. ALPRAZolam (Xanax) 1 MG tablet Take 1 (one) tablet by mouth as needed 1 Active HYDROcodone-rebecca taminophen (NORCO) 7.5-325 MG tablet Take 1 (one) tablet by mouth as needed for Pain Active DULoxetine (Cymbalta) 60 MG capsule Take 1 (one) capsule by mouth once daily 2 Active oxyCODONE-aceta minophen (Percocet) 7.5-325 MG tablet Take 1 (one) tablet by mouth every 6 hours as needed pain 3 Active traMADol (Ultram) 50 MG tablet TAKE 1 TABLET BY MOUTH EVERY 6 HOURS NEEDED AVOID DRIVING OR OPERATING MACHINES 3 Active phentermine (Adipex-P) 37.5 MG tablet Take 1 (one) tablet by mouth daily before breakfast 4 Active rizatriptan (Maxalt) 5 MG tabletIndicatio ns:Migraine variant,Intract able migraine without aura and with status migrainosus Take 1 tab by mouth once at first sign of migraine. May repeat one time after 2 hours if needed. 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, not intractable, without status epilepticus (HCC),Migraine without aura and without status migrainosus, not intractable Take 3 (three) tablets by mouth 2 times daily 540 tablet 3 5 Active Pyridoxine HCl (CVS B6) 100 MG Take 1 (one) tablet by mouth once daily 30 tablet 11 5 Active topiramate (Topamax) 25 MG tabletIndicatio ns:Tension headache,Migrai ne variant,Intract able migraine without aura and with status migrainosus TAKE 1 (ONE) TABLET BY MOUTH 2 TIMES DAILY 180 tablet 3 5 Active propranolol ER 24hr (Inderal LA) 60 MG capsuleIndicati ons:Tremor,Tens ion headache TAKE 1 CAPSULE BY MOUTH EVERY DAY 90 capsule 3 5 Active propranolol ER 24hr (Inderal LA) 60 MG capsuleIndicati ons:Tremor,Tens ion headache Take 1 (one) capsule by mouth once daily 90 capsule 3 4 12/27/19 25 Discontinu ed(Reorder ) Active Problems Problem Noted Date Diagnosed Date Anemia due to folic acid deficiency 06/18/2021 Vitamin D deficiency 06/18/2021 Easy fatigability 02/06/2021 History of epilepsy 02/06/2021 Mitral regurgitation 02/06/2021 Postprocedural state 02/06/2021 Dyspnea 02/06/2021 Brain tumor 02/06/2021 Congenital subaortic stenosis 02/06/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 membrane 12/31/2020 Hypersomnia 12/31/2020 Hyperparathyroidism 12/31/2020 Heart murmur 12/31/2020 Epileptic seizure 12/31/2020 Dyspnea on exertion 12/31/2020 Benign brain tumor 12/31/2020 Iron deficiency anemia due to chronic blood loss 01/26/2020 Fibromyalgia 12/30/2018 Seizure disorder 12/30/2018 Bilateral headache 12/30/2018 Encounters Date Type Department Care Team Description 12/26/2024 Refill [facility] [address] [place] [address], [place] [address] Romel Casas RN DOCUMENTATION SPECIALIST-ENVIRONMENTAL CONSERVATION PROFESSOR Refill Request 11/02/2024 Refill [facility] Neurology [address] [place] [phone] Romel Casas RN DOCUMENTATION SPECIALIST-ENVIRONMENTAL CONSERVATION PROFESSOR Refill Request from Last 3 Months Immunizations Immunization Administration Dates Next Due INFLUENZA VACCINE, QUADR. (F LUZONE; FLULAVAL; FLUARIX; AFLURIA QUADRIVALENT; 6MO+), 0.5 ML (IIV4) 12/12/2018 Family History Medical History Relation Name Comments Aneurysm, Brain Father Hypertension Mother Blindness Neg Hx Glaucoma Neg Hx Macular Degeneration Neg Hx Relation Name Status Comments Father Mother Social History Tobacco Use Types Packs/Day Years Used Date Smoking Tobacco: Never Smokeless Tobacco: Never Tobacco Cessation:Counseling Given: Not Answered Alcohol Use Standard Drinks/Week Comments Never 0 (1 standard drink = 0.6 oz pur e alcohol) Comments No Sex and Gender Information Value Date Recorded Sex Assigned at Not on file Legal Sex Female 3:03 PM CDT Gender Identity Not on file Sexual Orientation Not on file Last Filed Vital Signs Vital Sign Reading Time Taken Comments Blood Pressure 150/79 07/10/2024 12:56 PM CDT Pulse 97 07/10/2024 12:56 PM CDT Temperature 37.3 C (99.1 F) 07/08/2023 1:22 PM CDT Respiratory Rate - - Oxygen Saturation 99% 07/10/2024 12:56 PM CDT Inhaled Oxygen Concentration - - Weight 113.9 kg (251 lb) 07/10/2024 12:56 PM CDT Height 157.5 cm (5' 2) 05/18/2023 2:07 PM [employer] Body Mass Index 45.91 05/18/2023 2:07 PM [employer] Plan of Treatment Upcoming Encounters Date Type Department Care Team (Late st Contact Info) Description 01/08/2025 11:30 AM CDT Office Visit [facility] - [facility]rology [address] [place] [address] Augusto Romel, RN DOCUMENTATION SPECIALIST-ENVIRONMENTAL CONSERVATION PROFESSOR [address] [place] [phone] Health Maintenance Due Date Last Done Comments COLOGUARD (AGES 45-75) - COL ON CA SCREENING 1972 COLON MONITORING 1972 COLONOSCOPY - COLON CA SCREENING 1972 CT COLONOGRAPHY - COLON CA SCREENING 1972 Colorectal Cancer Screening 1972 FIT - COLON CA SCREENING 1972 FLEX SIG - COLON CA SCREENING 1972 MAMMOGRAM 1972 HIV SCREENING 11/05/1987 HEPATITIS C SCREENING 10/31/1990 DTAP/TDAP/TD VACCINES (1 - Tdap) 11/05/1991 HEPATITIS B VACCINE (1 of 3 - 19+ 3-dose series) 11/05/1991 PNEUMOCOCCAL VACCINE 50+ (1 of 1 - PCV) 2022 ZOSTER VACCINE (1 of 2) 2022 LIPID TESTING 11/09/2023 11/08/2018 DEPRESSION SCREENING 03/22/2024 COVID-19 VACCINE (1 - 2023-2 5 season) 2024 INFLUENZA VACCINE (#1) 2024 , 12/12/2018 HIB VACCINE Aged Out No longer eligi ble based on patient's age to complete this topic HPV VACCINE Aged Out No longer eligi ble based on patient's age to complete this topic MENINGOCOCCAL (Group B) VACCINE SHARED DECISION-MAKING Aged Out No longer eligible based on patient's age to complete this topic MENINGOCOCCAL GROUPS A/C/Y/W VACCINE Aged Out No longer eligible b ased on patient's age to complete this topic Insurance [facility] Care Teams Furnace Repair Mechanic Relationship Specialty Start Date End Date Rebel Montejo MD [address] [facility] [address] [place] [address] PCP - General Family Medicine 11/28/18
--- OUTSIDE RECORDS SUMMARY | 2024-12-26 14:32 | XMS_ITS | Encounter Summary ---
Author Organization [facility] Address [address] [place] [address] Phone Care Team Providers Care Senior Asic Engineer Name Role Phone Rebel Montejo Primary Care Provider Heriberto Kowalski MD Unavailable [phone] Encounter Details Date Type Department Care Team (Late st Contact Info) Description 09/03/2021 Telephone [facility] [address] [place] [address] Heriberto Kowalski MD [address] [place] [address] Social History Tobacco Use Types [...] encounter Miscellaneous Notes * Telephone Encounter - Yadira Contreras - 09/03/2021 11:23 AM CDT Pt stated that her daughter is in the ICU at [facility] [place]. She will call back to reschedule appt. documented in this encounter Plan of Treatment Not on file documented as of this encounter Visit Diagnoses Not on filedocumented in this encounter Additional Health Concerns Assessment Noted Time PHQ-9 Depression Total Score: 0 12/19/19 21 1:28 PM CDT documented as of this encounter Care Teams Senior Asic Engineer Relationship Specialty Start Date End Date Rebel Montejo [address] [place] [address] PCP - General Family Medicine 01/02/20 Heriberto Kowalski MD [address] [place] [address] Consulting Physician Hematology 02/28/20 documented as of this encounter
--- OUTSIDE RECORDS SUMMARY | 2024-12-26 14:32 | XMS_ITS | Encounter Summary ---
Author Organization [facility] Address [address] [place] [address] Phone Care Team Providers Care Welding Pantograph Operator Name Role Phone Rebel Montejo Primary Care Provider [phone] Heriberto Kowalski MD Unavailable [phone] Reason for Visit * Reason Comments Medication Refill Encounter Details Date Type Department Care Team (Late st Contact Info) Description 07/24/2021 Refill [facility] [address] [address] Mario Reich, PAC Medication Refill Social History Tobacco Use Types Packs/Day Years [...] file Not on file Not on file COVID-19 Exposure Response Date Recorded In the last 10 days, have yo u been in contact with someone who was confirmed or suspected to have Coronavirus/COVID-19? No / Unsure 07/16/2021 12:43 PM CDT documented as of this encounter Miscellaneous Notes * Telephone Encounter - Savannah Basurto - 07/24/2021 1:28 PM CDT Patient currently taking otc vitamin D * Telephone Encounter - Savannah Basurto - 07/24/2021 1:27 PM CDT Images from the original note were not included. Heriberto Kowalski MD You 1 hour ago (11:40 AM) MW She can get OTC or needs to fill with PCP from now on thanks Message text * Telephone Encounter - Savannah Basurto - 07/24/2021 10:32 AM CDT Please refill if appropriate. documented in this encounter Plan of Treatment Not on file documented as of this encounter Visit Diagnoses Diagnosis Vitamin D insufficiency Unspecified vitamin D deficiency documented in this encounter Additional Health Concerns Assessment Noted Time PHQ-9 Depression Total Score: 0 12/19/19 21 1:28 PM CDT documented as of this encounter Care Teams Welding Pantograph Operator Relationship Specialty Start Date End Date Rebel Montejo [address] [place] [address] PCP - General Family Medicine 01/02/20 Heriberto Kowalski MD [address] [place] [phone] Consulting Physician Hematology 02/28/20 documented as of this encounter
--- OUTSIDE RECORDS SUMMARY | 2024-12-26 14:32 | XMS_ITS | Encounter Summary ---
Author Organization [facility] Address [facility] [place] [address] Care Team Providers Care Analyst Business Analysis Name Role Phone Cheko Smith MD Unavailable [phone] Daily, Star Gann MD Unavailable Unavailable Rebel Montejo MD Primary Care Provider [phone] Encounter Details Date Type Department Care Team (Late st Contact Info) Description 11/14/2018 Abstract [facility] at [address] [address] Alberto Szymanski MA Social History Tobacco Use Types Packs/Day Years [...] on file Sexual Orientation Not on file documented as of this encounter Plan of Treatment Not on file documented as of this encounter Procedures Procedure Name Priority Date/Time Associated Diagnosis Comments CREATININE Routine 11/28/2018 HCT (ABSTRACTED) Routine 11/11/2018 HCT (ABSTRACTED) Routine 11/11/2018 BUN (OUTSIDE LAB) Routine 11/11/2018 CREATININE Routine 11/11/2018 documented in this encounter Results * (ABNORMAL) CREATININE (11/28/2018) Pathologist [facility] CREATININE S/P/B 1.35(A) 0.5 - 1.0 EGFR NON-AFR. AMER. 45 <=90 11/28/2018 us Doc [facility] Abstract LABORATORY Final Result * HCT (ABSTRACTED) (11/11/2018) Pathologist [facility] HCT 32.1 11/11/2018 us Doc [facility] Abstract LAB-OUTSIDE/ABSTRACTED Final Result * HCT (ABSTRACTED) (11/11/2018) Pathologist [facility] HCT 32.1 11/11/2018 us Doc [facility] Abstract LAB-OUTSIDE/ABSTRACTED Final Result * CREATININE (11/11/2018) Pathologist [facility] CREATININE S/P/B 0.90 0.5 - 1.0 EGFR NON-AFR. AMER. 89 <=90 11/11/2018 us Doc [facility] Abstract LABORATORY Final Result * BUN (OUTSIDE LAB) (11/11/2018) Pathologist [facility] BUN 12 11/11/2018 us Doc [facility] Abstract LAB-OUTSIDE/ABSTRACTED Final Result documented in this encounter Visit Diagnoses Not on filedocumented in this encounter Care Teams Analyst Business Analysis Relationship Specialty Start Date End Date Rebel Montejo MD [address] [address] PCP - General FAMILY PRACTICE 11/02/18 Cheko Smith MD [facility] [place] [place], [place] [id number] [place] [facility] Supervisor INTERVENTIONAL CARDIOLOGY 11/01/18 Daily, Star Gann MD [facility] [address] [address] Referring Physician CARDIOTHORACIC SURGERY 11/02/18 documented as of this encounter
--- OUTSIDE RECORDS SUMMARY | 2024-12-26 14:32 | XMS_ITS | Encounter Summary ---
Author Organization [facility] Address [address] [place] [address] Care Team Providers Care Telephone Technician Name Role Phone Rebel Montejo MD Primary Care Provider [phone] Reason for Visit * Reason Comments Refill Request Encounter Details Date Type Department Care Team (Late st Contact Info) Description 12/26/2024 Refill [facility] - Neurology [address] [place] [address], [place] [phone] Romel Casas APRN-ACCOUNTS MANAGER [address] [place] [phone] Refill Request Social History Tobacco Use Types Packs/Day Years Used Date Smoking Tobacco: Never Smokeless Tobacco: Never Alcohol Use Standard Drinks/Week Comments Never 0 (1 standard drink = 0.6 oz pur e alcohol) Comments No Sex and Gender Information Value Date Recorded Sex Assigned at Not on file Legal Sex Female 3:03 PM CDT Gender Identity Not on file Sexual Orientation Not on file documented as of this encounter Miscellaneous Notes * Telephone Encounter - Terese Kang - 12/26/2024 6:45 AM CDT Refill Request Kayla Leggett KELLY: NOV due: 01/08/2025 NOV scheduled: 01/08/2025 LRF: 01/06/2024 Qty Disp: 90 # of refills: 3 Allergies: Allergies[1] Pended Medication Order: Requested Prescriptions Pending Prescriptions Disp Refills propranolol ER 24hr (Inderal LA) 60 MG capsule [Pharmacy Med Name: PROPRANOLOL ER 60 MG CAPSULE] 90capsule 3 Sig: TAKE 1 CAPSULE BY MOUTH EVERY DAY [1] Allergies Allergen Reactions Penicillins Rash and Other Tongue swells Penicillamine Unknown documented in this encounter Plan of Treatment Upcoming Encounters Date Type Department Care Team (Late st Contact Info) Description 01/08/2025 11:30 AM CDT Office Visit [facility] - Neurology [address] [place] [address], [place] [address] Romel Casas APRN-ACCOUNTS MANAGER [address] [place] [address] [place] [address] documented as of this encounter Visit Diagnoses Diagnosis Tremor Abnormal involuntary movements Tension headache documented in this encounter Care Teams Telephone Technician Relationship Specialty Start Date End Date Rebel Montejo MD [address] [facility] [address] [place] [address] PCP - General Family Medicine 11/28/18 documented as of this encounter
== END 2024-12-26 13:36 | disposition home or self-care (01) ==
LOC: ANHFOHIMG 13:37
PROVIDERS: PCP Emergency Medicine; Visit Provider Emergency Medicine
DX: Z12.31 Encounter for screening mammogram for malignant neoplasm of breast (principal)
CPT/HCPCS: 77063; 77067